=== PATIENT | male | born 1945 | race Caucasian/White ===

== ENCOUNTER 2019-12-17 14:36 | Observation (INO) | payer OTHER, MEDICARE ==
[~2019-12-17] VITALS: Ht 180.3 cm; Wt 127.0 kg
--- NOTE | 2019-12-17 14:36 | NUR ---
PATEINT TO ROOM VIA WHEELCHAIR AND PHYSICIAN AT BEDSIDE FOR EVAL
[2019-12-17 15:05] LABS: HEMATOCRIT 38.9 % (39.0-50.0); IMMATURE GRANULOCYTES 0.3 % (0.0-5.0); MEAN CELL VOLUME 89.6 fL CALC (80.0-100.0); MEAN CORPUSCULAR HGB CONC 33.4 g/dL CAL (32.0-36.0); NEUT# 4.78 thou/uL (1.82-7.42); RED BLOOD COUNT 4.34 mill/uL (4.70-6.10); RED CELL DISTRI WIDTH 15.5 % (11.5-15.5)
[2019-12-17] MEDS ORDERED: CETIRIZINE10 MG PO (15:10)
[2019-12-17] MEDS ORDERED: VENTOLIN HFA IN (15:10)
[2019-12-17] MEDS ORDERED: PLAVIX75 MG PO (15:11)
[2019-12-17] MEDS ORDERED: FAMOTIDINE20 M1 PO (15:11)
[2019-12-17] MEDS ORDERED: D3 HIGH POT1000 UNIT PO (15:11)
[2019-12-17] MEDS ORDERED: GLIPIZIDE5 MG PO (15:12)
[2019-12-17] MEDS ORDERED: GABAPENTIN100 MG PO (15:12)
[2019-12-17] MEDS ORDERED: HYDROCHLOROT25 MG PO (15:13)
[2019-12-17] MEDS ORDERED: INSULIN AS100 UNIT/1 SC (15:14)
[2019-12-17] MEDS ORDERED: SINGULAIR10 MG PO (15:15)
[2019-12-17] MEDS ORDERED: METOPROL TAR25 MG PO (15:15)
[2019-12-17] MEDS ORDERED: ASPIRIN 81 LOW81 MG PO (15:16)
[2019-12-17] MEDS ORDERED: ISOSORB MONO60 M1 PO (15:18)
[2019-12-17 15:29] LABS: ANION GAP 14 (6-22 (CALC)); BUN 15 mg/dL (8-23); BUN/CREATININE RATIO 19 (12-20 (CALC)); CARBON DIOXIDE 29 mmol/l (22-30); CHLORIDE 98 mmol/l (95-108); CREATININE 0.8 mg/dL (0.7-1.3); GFR > 60 ML/MIN (>=60 (CALC)); GFR FOR AFR.AMER. > 60 ML/MIN (>=60 (CALC)); POTASSIUM 3.6 mmol/l (3.5-5.1); SODIUM 138 mmol/l (137-146)
--- NOTE | 2019-12-17 15:45 | NUR ---
PT STABLE ON MONITOR. DENIES ANY CHEST PAIN AT THIS TIME. AT BEDSIDE.
--- NOTE | 2019-12-17 16:45 | NUR ---
PT REMAINS STABLE. DENIES ANY PAIN. BED IN LOW POSITION. CALL LIGHT WITHIN REACH.
--- NOTE | 2019-12-17 17:05 | NUR ---
REPORT CALLED TO NAIMA PACHECO ON [facility].
--- NOTE | 2019-12-17 17:15 | NUR ---
PT ARRIVED TO UNIT VIA WHEELCHAIR WITH ER STAFF; ALERT AND ORIENTED. AMBULATED TO BED WITH STEAGY GAIT; PT REPORTS UNSTEADY GAIT AND USES CANE AND WALKER AT HOME. DENIES ANY CHEST PAIN UPON ARRIVAL; TELE CONFIRMED WITH SHANK CEMENTER HAND SR HR 72. RESPIRATIONS EVEN AND UNLABORED ON ROOM AIR. LUNGS CLEAR; HR REGULAR. YAHAIRA HOSE APPLIED. ORIENTED TO ROOM AND CALL LIGHT SYSTEM. PLAN OF CARE REVIEWED. PT ENCOURAGED TO VERBALIZE CONCERNS. STATES UNDERSTANDING. SAFETY MEASURES IN PLACE. CALL LIGHT WITHIN REACH.
[2019-12-17 17:33] VITALS: BP 112/73
[2019-12-17 19:04] VITALS: BP 115/70
--- NOTE | 2019-12-17 19:25 | NUR ---
PT UPRIGHT IN BE WATCHING BALLGAME ON TV. PT DENIES SOB, CP, N/V OR ANY OTHER DISTRESSES. CALL LIGHT W/IN REACH. DIET SODA PROVIDED AT THIS TIME PER REQUEST. PT ENCOURAGED TO CALL NEEDS ARISE. PT REPORTS HAVING DIZZINESS OFTEN, AGILE TESTER ASKED PT TO CALL PRIOR TO AMBULATING FOR STANDBY ASSISTANCE FOR SAFETY, PT VERBALIZED UNDERSTANDING.
--- NOTE | 2019-12-17 20:04 | NUR ---
PT SLEEPING, NO S/O DISTRESS NOTED. CALL LIGHT AT BEDSIDE. BED IN LOWEST POSITION AND SEIZURE PRECAUTIONS PLACED.
--- NOTE | 2019-12-17 21:04 | NUR ---
PT MEDICATED ORDERS PROVIDE. ASSESSMENT COMPLETED AT THIS TIME. PT DENIES SOB, CP OR ANY OTHER DISTRESS. WILL CONTINUE TO MONITOR.
[2019-12-17 23:41] VITALS: BP 113/72
--- NOTE | 2019-12-18 02:00 | NUR ---
PT SLEEPING, NO S/O DISTRESS NOTED.
[2019-12-18 03:47] VITALS: BP 101/62
[2019-12-18 06:08] LABS: HEMATOCRIT 38.1 % (39.0-50.0); HEMOGLOBIN 12.8 g/dl (14.0-18.0); IMMATURE GRANULOCYTES 0.3 % (0.0-5.0); MEAN CELL VOLUME 89.2 fL CALC (80.0-100.0); MEAN CORPUSCULAR HGB CONC 33.6 g/dL CAL (32.0-36.0); NEUT# 3.44 thou/uL (1.82-7.42); RED BLOOD COUNT 4.27 mill/uL (4.70-6.10); RED CELL DISTRI WIDTH 15.5 % (11.5-15.5)
[2019-12-18 06:33] LABS: ALBUMIN 3.8 g/dL (3.2-5.0); ALKALINE PHOSPHATASE 58 u/l (38-126); ANION GAP 12 (6-22 (CALC)); BILIRUBIN, TOTAL 0.8 mg/dL (0.0-1.4); BUN 17 mg/dL (8-23); BUN/CREATININE RATIO 21 (12-20 (CALC)); CALCULATED LDLCHOLESTEROL 48 mg/dL (62-129 (CALC)); CARBON DIOXIDE 28 mmol/l (22-30); CHLORIDE 101 mmol/l (95-108); CHOLESTEROL HDL RATIO 6.4 (<4.4 (CALC)); CREATININE 0.8 mg/dL (0.7-1.3); GFR > 60 ML/MIN (>=60 (CALC)); GFR FOR AFR.AMER. > 60 ML/MIN (>=60 (CALC)); HDL CHOLESTEROL 20 mg/dL (>=40); MAGNESIUM 1.7 mg/dL (1.6-2.3); SGOT/AST 80 u/l (19-48); SODIUM 137 mmol/l (137-146); TOTAL CHOLESTEROL 129 mg/dl (0-199); TOTAL PROTEIN 6.9 g/dL (6.3-8.2); TOTAL TRIGLYCERIDES 305 mg/dl (30-149); VLDL CHOLESTROL 61 mg/dl (0-38 (CALC))
--- NOTE | 2019-12-18 07:50 | NUR ---
PT RESTING IN BED, ALERT AND ORIETNED. VS OBTAINED AND ASSESSMENT COMPLETED. RESPIRATIONS ARE EVEN AND UNLABORED ON RA. LUNGS SOUND CLEAR. PEDAL PULSES ARE STRONG. PT DENIES ANY PAIN OR DISCOMFORT AT THIS TIME. TELE IN PLACE. CALL CLIFTON WITHIN REACH. WILL CONTINUE TO MONITOR.
[2019-12-18 07:51] VITALS: BP 110/68
[2019-12-18 11:27] VITALS: BP 114/55
--- NOTE | 2019-12-18 11:34 | NUR ---
PT AND SPOUSE PROVIDED WITH DISCHARGE PACKET, PT DENIES HAVING ANY QUESTIONS. IV #18 RAC REMOVED PT TOLERATED WELL.
--- NOTE | 2019-12-18 11:45 | NUR ---
Discharge instructions given. Patient verbalizes understanding of same. Discharged in stable condition via Wheelchair to Home with spouse . All belongings sent with pt.
== END 2019-12-18 11:50 | disposition home or self-care (01) | DRG 313 ==
LOC: ED 14:36 → ED-I 15:13 → ED 15:13 → ED-I 16:08 → ED 16:26 → MS2 16:27
PROVIDERS: Family Medicine; Nurse Practitioner; ADMIT Internal Medicine; ATTEND Internal Medicine
DX: R07.9 Chest pain, unspecified (principal); I10 Essential (primary) hypertension; E11.9 Type 2 diabetes mellitus without complications; I25.10 Atherosclerotic heart disease of native coronary artery without angina pectoris; I25.2 Old myocardial infarction; Z95.5 Presence of coronary angioplasty implant and graft; Z79.4 Long term (current) use of insulin; Z20.828 Contact with and (suspected) exposure to other viral communicable diseases
CPT/HCPCS: J1650

== ENCOUNTER 2020-03-18 12:14 | Inpatient (IN) | payer OTHER, MEDICARE ==
[~2020-03-18] VITALS: Ht 180.3 cm; Wt 122.2 kg
[~2020-03-18 12:14] MED LIST: ASPIRIN 81 LOW81 MG PO; CETIRIZINE10 MG PO; D3 HIGH POT1000 UNIT PO; FAMOTIDINE20 M1 PO; GABAPENTIN100 MG PO; GLIPIZIDE5 MG PO; HYDROCHLOROT25 MG PO; INSULIN AS100 UNIT/1 SC; ISOSORB MONO60 M1 PO; METOPROL TAR25 MG PO; PLAVIX75 MG PO; SINGULAIR10 MG PO; VENTOLIN HFA IN
--- NOTE | 2020-03-18 12:15 | NUR ---
PATIENT TO ROOM VIA EMS AND PHYSICIAN AT BEDSIDE FOR EVAL
[2020-03-18 12:41] LABS: HEMATOCRIT 37.6 % (39.0-50.0); HEMOGLOBIN 12.7 g/dl (14.0-18.0); IMMATURE GRANULOCYTES 0.2 % (0.0-5.0); MEAN CELL VOLUME 87.6 fL CALC (80.0-100.0); MEAN CORPUSCULAR HGB 29.6 pG CALC (26.0-32.0); MEAN CORPUSCULAR HGB CONC 33.8 g/dL CAL (32.0-36.0); NEUT# 3.96 thou/uL (1.82-7.42); RED BLOOD COUNT 4.29 mill/uL (4.70-6.10); RED CELL DISTRI WIDTH 14.6 % (11.5-15.5)
--- NOTE | 2020-03-18 12:43 | NUR ---
PT STATES HAVING MANY FALLING EPISODES WHERE HE IS DIZZY AND FALLS. PT ARRIVES WITH C-COLLAR THAT WAS APPLIED BY EMS BECAUSE OF CERVICAL TENDERNESS. PT DENIES ANY NUMBNESS AND TINGLING IN EXTREMETIES. PMS+ IN ALL EXTREMETIES. NIH 0. WHEN I HAD PT LIFT HIS RIGHT LEG FOR NIH ASSESS, PT STATES THAT HE COULD NOT LIFT IT DUE TO RIGHT HIP PAIN. AOX4. PERRLA. WILL CONTINUE TO MONITOR.
[2020-03-18 13:06] LABS: ALBUMIN 4.2 g/dL (3.2-5.0); ALKALINE PHOSPHATASE 59 u/l (38-126); ANION GAP 15 (6-22 (CALC)); BUN 18 mg/dL (8-23); BUN/CREATININE RATIO 18 (12-20 (CALC)); CARBON DIOXIDE 28 mmol/l (22-30); CHLORIDE 95 mmol/l (95-108); GFR > 60 ML/MIN (>=60 (CALC)); GFR FOR AFR.AMER. > 60 ML/MIN (>=60 (CALC)); POTASSIUM 3.3 mmol/l (3.5-5.1); SGOT/AST 47 u/l (19-48); SODIUM 135 mmol/l (137-146); TOTAL PROTEIN 7.9 g/dL (6.3-8.2)
--- NOTE | 2020-03-18 13:30 | NUR ---
PT RESTING ON STRETCHER WITH AT BEDSIDE. PT IS COMPLAINING ABOUT C/COLLAR AND EDU PROVIDED. DENIES ANY NEEDS EXCEPT FOR WANTING WATER AND THAT WAS DENIED AT THIS TIME UNTIL RESULTS ARRIVE
--- NOTE | 2020-03-18 14:30 | NUR ---
PT HAS ANTIBIOTICS INFUSING INTO PATENT IV AND PT CONTINUES TO HAVE NO ADVERSE EFFECTS. DENIES ANY NEEDS AND PENDING ADMISSION IS DISCUSSED
--- NOTE | 2020-03-18 16:01 | NUR ---
GAVE REPORT TO ADARSH
--- NOTE | 2020-03-18 16:04 | NUR ---
REPORT REC FROM JANETH MCNAMARA
--- NOTE | 2020-03-18 16:20 | NUR ---
PT TRANSPORTED TO [facility] SURG STABLE AND IN NO DISTRESS. CARE ASSUMED TO ADARSH Admission Note Report Given to: ADARSH Transported by: Wheelchair X Stretcher Transported with: X Nurse Transporter X Patent IV X O2 X Dean For Student Affairs Location: ICU X MS2
--- NOTE | 2020-03-18 16:30 | NUR ---
PT ARRIVED VIA [facility] ACCOMPANIED BY JANETH MCNAMARA. A&O X3. NO DISTRESS NOTED. PT REPORTS DIZZINESS THAT HAS BEEN GOING ON FOR SEVERAL WEEKS. ADMITS TO FREQUENT FALLS. NO BURISING NOTED. INCREASING WEAKNESS. PT USES CANE, BUT STATES HE HAS BEEN HAVING TO USE THE WALKER MORE FREQUENTLY AT HOME. C/O RT RIB PAIN. STATES THAT HE HAS BEEN "LOOSING MEMORY". REPORTS DIZZINESS WHEN TRYING TO PLACE IN SEMI FOWLERS POSITION, PT REPORTS "DIZZINESS". ASSESSMENT COMPLETED. DISCUSSED POC, REINFORCEMENT NEEDED. CALL LIGHT LEFT WITHIN REACH.
[2020-03-18 17:02] VITALS: BP 114/56
--- NOTE | 2020-03-18 18:37 | NUR ---
TELE NEUROLOGY CONSULT WITH DR GUERRERO IN PROGRESS.
[2020-03-18 19:11] VITALS: BP 120/78
--- NOTE | 2020-03-18 20:34 | NUR ---
PT MEDICATED ORDERS PROVIDE AND ASSESSMENT COMPLETED AT THIS TIME. POULTRY PINNER WAS JUST IN ATTEMPTING TO ASSIST HIM TO BSC, BUT HE WAS VERY UNSTABLE ON HIS FEET AND EXPERIENCED DIZZINESS UPON ATTEMPTING TO AMBULATE. PT PLACED ON BEDPAN, BUT WAS UNABLE TO HAVE BM AT THIS TIME. DISCUSSED THAT HE WILL TRY AGAIN LATER, I REINFORCED HIS NEED TO CALL FOR ASSISTANCE DUE TO FREQUENT FALLS AND DIZZINESS. PT ALSO REPORTS MILD NAUSEA, MEDICATED WITH ZOFRAN AT THIS TIME. DENIES ANY OTHER NEEDS. I ASSISTED HIM REPOSITIONING IN BED FOR COMFORT AND PROVIDED APPLE JUICE AND CRACKERS FOR SNACK REQUESTED. CALL LIGHT LEFT AT SIDE AND MONITOR IN PLACE FOR SAFETY PRECAUTION.
[2020-03-19 00:04] VITALS: BP 114/57
--- NOTE | 2020-03-19 00:05 | NUR ---
PT SLEEPING, AWOKE TO OUR ENTERING THE ROOM. TELEMETRY LEADS PLACED BACK PROPER PLACING FOR READINGS AND V/S ASSESSED AT THIS TIME. MONITOR ON PT FOR SAFETY.
--- NOTE | 2020-03-19 02:30 | NUR ---
pt appears to be sleeping at this time. no s/o distress noted.
[2020-03-19 04:00] VITALS: BP 102/67
--- NOTE | 2020-03-19 05:33 | NUR ---
PT SLEEPING, AWOKE TO MY ENTERING ROOM, DENIED ANY NEEDS AT THIS TIME. OXYGEN TITRATED DOWN TO 2L AT THIS TIME, WILL CONTINUE TO MONITOR FOR O2 SAT LEVELS. WAS @98% ON 3L.
[2020-03-19 06:21] LABS: HEMOGLOBIN 12.4 g/dl (14.0-18.0); IMMATURE GRANULOCYTES 0.4 % (0.0-5.0); MEAN CELL VOLUME 89.4 fL CALC (80.0-100.0); MEAN CORPUSCULAR HGB CONC 33.5 g/dL CAL (32.0-36.0); NEUT# 3.82 thou/uL (1.82-7.42); RED BLOOD COUNT 4.14 mill/uL (4.70-6.10); RED CELL DISTRI WIDTH 14.6 % (11.5-15.5)
--- NOTE | 2020-03-19 06:50 | NUR ---
REPORT REC FROM SARAH MCNAMARA
[2020-03-19 06:51] LABS: ALBUMIN 3.7 g/dL (3.2-5.0); ALKALINE PHOSPHATASE 55 u/l (38-126); BILIRUBIN, TOTAL 0.8 mg/dL (0.0-1.4); BUN 17 mg/dL (8-23); BUN/CREATININE RATIO 20 (12-20 (CALC)); C-REACTIVE PROTEIN 5.7 mg/dL (0-0.9); CARBON DIOXIDE 29 mmol/l (22-30); CHLORIDE 102 mmol/l (95-108); CREATININE 0.9 mg/dL (0.7-1.3); GFR > 60 ML/MIN (>=60 (CALC)); GFR FOR AFR.AMER. > 60 ML/MIN (>=60 (CALC)); SGOT/AST 35 u/l (19-48)
[2020-03-19 07:20] LABS: ANION GAP 15 (6-22 (CALC)); POTASSIUM 4.3 mmol/l (3.5-5.1); SODIUM 142 mmol/l (137-146)
[2020-03-19 08:32] VITALS: BP 175/69
--- NOTE | 2020-03-19 08:32 | NUR ---
UPON ENTERING ROOM PT C/O OF CP, DULL IN DESCRIPTION THAT IS NON RADIATING 08/14 . PT STATES HE TAKES SUBLINGUAL NITRO AT HOME. A&O X3. C/O OF DIZZINESS WELL THAT HAS NOT SUBSIDED, STATES IT GETS WORSE WHEN HE TURNS OR MOVES. BREATH SOUNDS CLEAR UPON AUSCULTATION. O2 VIA NC @2L IN PLACE, O2 TITRATED TO 3L VIA NC, O2 SUSTAINING 93-95%. ASSESSMENT COMPLETED. DISCUSSED POC. CALL LIGHT LEFT WITHIN REACH.
--- NOTE | 2020-03-19 08:50 | NUR ---
DR CHIU AND Uriel ESCOTO APRN AT BEDSIDE DISCUSSING POC
--- NOTE | 2020-03-19 09:02 | NUR ---
RT AT BEDSIDE OBTAINING EKG
--- NOTE | 2020-03-19 09:15 | NUR ---
LAB AT BEDSIDE OBTAINING STAT TROPONIN
--- NOTE | 2020-03-19 09:17 | NUR ---
FIRST DOSE OF SUBLINGUAL NITRO ADMINISTRED. PT TO BE REASSESSED
--- NOTE | 2020-03-19 09:36 | NUR ---
SECOND DOSE OF SUBLINGUAL NITRO ADMINISTERED. CALL LIGHT LEFT WITHIN REACH. CONTINUE TO MONITOR.
--- NOTE | 2020-03-19 09:42 | NUR ---
SPUTUM SAMPLE OBTAINED, LABELED AND SENT TO LAB. SPUTUM CLEAR WITH RED TINGE COLOR.
--- NOTE | 2020-03-19 09:54 | NUR ---
UPON REASSESSMENT PT STATES PAIN IS "MUCH BETTER" RATING IT 1/10. WILL CONTINUE TO MONITOR. MERCHANDISING CONSULTANT IN PLACE.
[2020-03-19 11:42] VITALS: BP 138/63
--- NOTE | 2020-03-19 12:36 | NUR ---
PT SITTING IN BED WATCHING TV. NO DISTRESS NOTED. PT DENIES ANY CP AT THIS TIME. CALL LIGHT IN REACH.
[2020-03-19] MEDS ORDERED: HYDROCHLOROT25 MG PO (13:24)
[2020-03-19] MEDS ORDERED: CELEXA40 M1 PO (13:28)
[2020-03-19] MEDS ORDERED: MONTELUKAST SOD10 MG PO (13:29)
[2020-03-19] MEDS ORDERED: [UNRECOGNIZED DRUG - CODE] (13:32)
[2020-03-19] MEDS ORDERED: PANTOPRAZOLE SO40 M1 PO (13:33)
[2020-03-19] MEDS ORDERED: GLIPIZIDE5 M2 PO (13:37)
[2020-03-19] MEDS ORDERED: METOPROL TAR25 M1 PO (13:37)
[2020-03-19] MEDS ORDERED: ISOSORB MONO60 M1 PO (13:38)
[2020-03-19] MEDS ORDERED: ROSUVASTATIN CA40 MG (13:43)
[2020-03-19] MEDS ORDERED: ALL DAY ALLG10 MG PO (13:44)
[2020-03-19] MEDS ORDERED: FERROUS SULF325 M2 PO (13:46)
[2020-03-19] MEDS ORDERED: PROAIR HFA IN (13:47)
[2020-03-19] MEDS ORDERED: LANTUS100 UNIT/M SC (13:48)
[2020-03-19] MEDS ORDERED: NOVOLOG100 UNIT/M SC (13:51)
[2020-03-19] MEDS ORDERED: CLOPIDOGREL75 MG PO (14:00)
[2020-03-19] MEDS ORDERED: ASPIRIN ADULT L81 M2 (14:01)
--- NOTE | 2020-03-19 15:35 | NUR ---
PT A X2 ASSIST WHEN GETTING OUT OF BED DUE TO "SEVERE DIZZINESS". PT ASSISTED TO THE CHAIR. INSTRUCTED PT TO CALL WHEN WANTING TO GET OUT OF BED OR WHEN DIZZINESS WORSENS. PT VERBALIZED UNDERSTANDING. PT DENIES ANY CP AT THIS TIME. CALL LIGHT LEFT WITHIN REACH.
--- NOTE | 2020-03-19 16:03 | NUR ---
SPEECH THERAPY AT BEDSIDE
[2020-03-19 16:10] VITALS: BP 131/80; BP 134/67
--- NOTE | 2020-03-19 17:37 | NUR ---
PT LAYING IN BED WATCHING TV. DENIES ANY CP AT THIS TIME. CALL LIGHT IN REACH.
[2020-03-19 19:00] VITALS: BP 132/67
--- NOTE | 2020-03-19 20:59 | NUR ---
PT IN BED WITH EYES CLOSED. NO S/S OF DISTRESS/DISCOMFORT. PT NOTED WIT PRODUCTIVE COUGH WITH THIC SPUTUM NOTED. RESPIRATIONS ARE EVEN AND NON LABORED. ABLE TO MAKE NEEDS KNOWN. ASSIST X 1 WITH TRANSFERS. CONTINENT OF B/B AND USES URINAL. CALL LIGHT WITHIN REACH. WILL CONTINUE TO OBSERVE
[2020-03-20] VITALS (7 sets, daily range): BP systolic 116–141; BP diastolic 47–73
--- NOTE | 2020-03-20 00:45 | NUR ---
PT IN BED WITH EYES CLOSED. NO S/S OF DISTRESS. BLOOD SUGAR ELEVATED 423 AT BEDTIME. MD WAS NOTIFIED AND NEW ORDER TO RECHECK ACUCHECK AFTER INSULIN GIVEN AND FOLLOW ORDERS FOR ELEVATED BOOD SUGARS. BLOOD GLUCOSE LAB COMPLETED. SSC GIVEN ORDERED. CALL LIGHT WITHIN REACH AND WILL CONTINUE TO OBSERVE
--- NOTE | 2020-03-20 04:28 | NUR ---
PT IN BED WITH EYES CLOSED AND ABLE TO MAKE NEEDS KNOWN. RESPIRATION IS EVEN AND NON LABORED. DENIES PAIN OR DISCOMFORT. CONTINENT OF B/B AND USES URINAL WITH NO COMPLICATIONS NOTED. CALL LIGHT WITHIN REACH AND WILL CONTINUE TO OBSERVE.
[2020-03-20 05:58] LABS: HEMATOCRIT 37.6 % (39.0-50.0); HEMOGLOBIN 12.5 g/dl (14.0-18.0); IMMATURE GRANULOCYTES 0.4 % (0.0-5.0); MEAN CELL VOLUME 89.7 fL CALC (80.0-100.0); MEAN CORPUSCULAR HGB 29.8 pG CALC (26.0-32.0); MEAN CORPUSCULAR HGB CONC 33.2 g/dL CAL (32.0-36.0); NEUT# 6.18 thou/uL (1.82-7.42); RED BLOOD COUNT 4.19 mill/uL (4.70-6.10); RED CELL DISTRI WIDTH 14.6 % (11.5-15.5)
[2020-03-20 06:23] LABS: ALBUMIN 3.4 g/dL (3.2-5.0); ALKALINE PHOSPHATASE 54 u/l (38-126); ANION GAP 13 (6-22 (CALC)); BILIRUBIN, TOTAL 0.6 mg/dL (0.0-1.4); BUN 22 mg/dL (8-23); BUN/CREATININE RATIO 28 (12-20 (CALC)); CARBON DIOXIDE 28 mmol/l (22-30); CHLORIDE 103 mmol/l (95-108); CREATININE 0.8 mg/dL (0.7-1.3); GFR > 60 ML/MIN (>=60 (CALC)); GFR FOR AFR.AMER. > 60 ML/MIN (>=60 (CALC)); POTASSIUM 4.2 mmol/l (3.5-5.1); SGOT/AST 29 u/l (19-48); SODIUM 140 mmol/l (137-146); TOTAL PROTEIN 6.6 g/dL (6.3-8.2)
--- NOTE | 2020-03-20 08:24 | NUR ---
PT SEEN OOB IN CHAIR, ALERT AND ORIENTED X 3. LUNGS CLEAR, DIMINISHED BASES, 6 LPM HFNC. ABDOMEN SOFT, DISTENDED, PT STATES NO BM X 1 WEEK BUT THAT IS NORMAL FOR HIM, HX COLITIS. NO DISTRESS NOTED, NO COMPLAINT OF SHORTNESS OF BREATH.
--- NOTE | 2020-03-20 14:39 | NUR ---
PT WAS IN CHAIR FOR SEVERAL HOURS TODAY, ASSISTED BACK INTO BED. PT IS AT MRI AT THIS TIME. OXYGEN DEMAND REMAINS AT 6 LPM PT REMAINS IN LOW 90s WITH THAT AMOUNT.
--- NOTE | 2020-03-20 16:15 | NUR ---
ATTEMPTED P.T. PT WAS IN THE IMAGING LAB.
--- NOTE | 2020-03-20 17:15 | NUR ---
PT TO MRI AND BACK, WAS ABLE TO HAVE MOST BUT NOT ALL OF WHAT WAS ORDERED. PT SEEN WEAK WHEN STANDING UP, BUT BEARS HIS WEIGHT WHEN HE REACHES FULL HEIGHT.
--- NOTE | 2020-03-20 19:50 | NUR ---
rECEIVED REPORT FOR THIS PT AND IN BED WITH EYES OPEN. ABLE TO MAKE NEEDS KNOWN. RESPIRATION EVEN AND NON LABORED. NO ANXIETY NOTED. CONTINENT OF B/B AND USES URINAL WITH NO COMPLICATIONS NOTED. WILL CONTINUE TO OBSERVE
[2020-03-21] VITALS (9 sets, daily range): BP systolic 104–155; BP diastolic 49–84
[2020-03-21 05:23] LABS: HEMATOCRIT 33.5 % (39.0-50.0); HEMOGLOBIN 10.9 g/dl (14.0-18.0); IMMATURE GRANULOCYTES 0.5 % (0.0-5.0); MEAN CELL VOLUME 90.5 fL CALC (80.0-100.0); MEAN CORPUSCULAR HGB 29.5 pG CALC (26.0-32.0); MEAN CORPUSCULAR HGB CONC 32.5 g/dL CAL (32.0-36.0); NEUT# 4.58 thou/uL (1.82-7.42); RED BLOOD COUNT 3.7 mill/uL (4.70-6.10); RED CELL DISTRI WIDTH 14.8 % (11.5-15.5)
--- NOTE | 2020-03-21 05:50 | NUR ---
PT IN BED WITH EYES CLOSED. NO S.S OF DISTRESS NOTED. EASILY AROUSED. VITALS ARE STABLE. CONTINUING IN TELEMETRY. CPAP IN PLACE AND RESTED WITH NO COMPLICATIONS. CONTINENT OF B/B AND USES URINAL AT BEDSIDE. CALL LIGHT WITHIN REACH. WILL CONTINUE TO OBSERVE
[2020-03-21 06:33] LABS: ALKALINE PHOSPHATASE 50 u/l (38-126); ANION GAP 10 (6-22 (CALC)); BILIRUBIN, TOTAL 0.7 mg/dL (0.0-1.4); BUN 25 mg/dL (8-23); BUN/CREATININE RATIO 33 (12-20 (CALC)); C-REACTIVE PROTEIN 1.4 mg/dL (0-0.9); CARBON DIOXIDE 26 mmol/l (22-30); CHLORIDE 106 mmol/l (95-108); CREATININE 0.7 mg/dL (0.7-1.3); GFR > 60 ML/MIN (>=60 (CALC)); GFR FOR AFR.AMER. > 60 ML/MIN (>=60 (CALC)); POTASSIUM 4.3 mmol/l (3.5-5.1); SGOT/AST 23 u/l (19-48); SODIUM 138 mmol/l (137-146); TOTAL PROTEIN 5.9 g/dL (6.3-8.2)
--- NOTE | 2020-03-21 07:10 | NUR ---
PATIENT RESTING IN BED AT THIS TIME PATIENT ON HI-FLOW 02 AT 10L AT THIS TIME AND IS HAVING LABORED RESPIRTAITONS. PATIENT DENIES ANY PAIN AT THIS TIME AND IV STIE IS WITHOUT S/S OF IV SITE INFECTION AND IS FLOWING WITHOUT RESISTANCE. CALL LIGHT IS WITHIN REACH AND SIDERAILS ARE UP X 2. PATIENT STATED HE SLEPT WELL LAST NIGHT DUE TO HAVING HIS C-PAP AT BEDSIDE.
--- NOTE | 2020-03-21 09:30 | NUR ---
REPORT CALLED TO ICU NURSE ANN MCNAMARA. DR. CHIU IN TO SEE PATIENT AND WANTS PATIENT TRANSFERED TO ICU TO MONITOR HIS O2 AT THIS TIME.
--- NOTE | 2020-03-21 11:38 | NUR ---
PT note Patient was seen for DBE including incentive spiromoter and 4 sec breath holds . He is really struggling when I enter the room and I attempted to get him to perform a deeper and slower breath. He was able to stand but became dyspneic and was transferred BTB. He recovered within 2 min. He is limited by dyspnea today and has an Am Pac of 10 indcicating he would do well with SNF to fully recover once he is stabilized
--- NOTE | 2020-03-21 11:44 | NUR ---
PT ARRIVES FROM [place] [id number] VIA WHEELCHAIR, ACCOMPANIED BY CLIFTON. PT IS AWAKE, ALERT, ORIENTED X 3. LUNGS ARE CLEAR, USING 10 LPM NC TO MAINTAIN SATS IN THE 88-92 RANGE. PT DOES BECOME SHORT OF BREATH UPON EXERTION.
--- NOTE | 2020-03-21 14:45 | NUR ---
Pt alert and oriented x4 upon entry. He was lying down with his nasal cannula removed and his call guerrier out of reach. Nile was seen today d/t his change in status from initial evaluation and transition to the icu. Nile is currently receiving 10L hiflow O2. His saturation remained stable during his time with the CHARGE OPERATOR between 90-95%. Nile was administered regular dry solids 4x to assess his current respiratory status for meals. Although he presented with increased mastication time, he did not have any s/s of aspiration of solids and appropriate bolus clearance w/o a liquid wash. No instances of desaturation during regular solid PO trials. Nile is also still tolerating his current recommended thin liquids via straw during consecutive sips and single cup sips. Clear vocal quality and no overt s/s of aspiration following thin liquid trials. CHARGE OPERATOR recommends to continue current diet for regular solids and thin liquids.
--- NOTE | 2020-03-21 15:27 | NUR ---
PT HAS BEEN RESTING IN THE BED THIS AFTERNOON, SATS NOW IN THE UPPER 90s. OXYGEN TURNED DOWN TO 8 LPM FROM 10 LPM NC, NOW 96%. PT IN NO DISTRESS, BECOMES LOPEZ.
--- NOTE | 2020-03-21 16:20 | NUR ---
PT WEANED DOWN TO 8 LPM FROM 10 LPM NC, SEEN TO HAVE 96% SAT NOW. PT IN NO DISTRESS, ALTHOUGH HE DOES BECOME SHORT OF BREATH WITH EXERTION.
--- NOTE | 2020-03-21 18:24 | NUR ---
PT CONTINUES AT 93-96% WHILE ON 8 LPM NC.
--- NOTE | 2020-03-21 20:00 | NUR ---
awake. denies resp diff. o2 cont 8 l/m nc. manager of tires sales shows sinus rhythm hr 85. #20 rac saline lock. po fluids taken well. voids per urinal. instructed pt about prone position. pt verbalized understanding. assisted to bedside chair. sob with exert. fall precautions cont.
--- NOTE | 2020-03-21 20:10 | NUR ---
pulse ox 87%. o2 increased to 10 l/m. after few minutes pulse ox 93%.
--- NOTE | 2020-03-21 22:00 | NUR ---
assisted back to bed. fred well. rt notified of need for assist with home cpap.
[2020-03-22] VITALS (14 sets, daily range): BP systolic 93–145; BP diastolic 53–87
--- NOTE | 2020-03-22 00:01 | NUR ---
eyes closed. nad. home cpap cont. rn cardiac rehab shows sinus cristina hr 54.
--- NOTE | 2020-03-22 02:00 | NUR ---
resting quietly. nad. lying on lt side. night monitor shows sinus cristina pacs pvcs hr 56.
--- NOTE | 2020-03-22 04:00 | NUR ---
eyes closed. nad. site monitor shows sinus cristina pacs pvcs hr 48.
--- NOTE | 2020-03-22 05:56 | NUR ---
eyes closed. nad. home cpap cont. radiation monitor shows sinus rhythm pacs pvcs hr 60.
--- NOTE | 2020-03-22 07:06 | NUR ---
PT REPORT RECEIVED, PT ALERT/ORIENTED X3, VITAL SIGNS STABLE. LAYING ON BACK IN BED WATCHING TV.
--- NOTE | 2020-03-22 08:19 | NUR ---
sunctioned pt with thick secretions. pts pupils are large but reactive. pt will wake up but does not respond to questions. pulse sat applied to great toe due to pt pulling off leads.
--- NOTE | 2020-03-22 09:25 | NUR ---
PT LAYING ON BED WATCHING TV, DENIES ANY COMPLAINTS AT THIS TIME
--- NOTE | 2020-03-22 09:51 | NUR ---
PT REMAINS SAME, VITAL SIGNS STABLE, NO COMPLAINTS AT THIS TIME
--- NOTE | 2020-03-22 11:43 | NUR ---
PT SITTING UP IN CHAIR, COMPLAINT OF ABRASION TO RIGHT KNEE, CLEANSED AREA AND APPLIED DRESSING AND ACEWRAP TO KNEE
--- NOTE | 2020-03-22 12:47 | NUR ---
PT REMAINS SITTING UP IN RECLINER AT THIS TIME, VITAL SIGNS STABLE, EATING FINE, WATCHING TV AT THIS TIME, NO COMPLAINTS. HIGH FLOW REMAINS AT 10 WITH SATS 89-92
--- NOTE | 2020-03-22 15:27 | NUR ---
PT PLACED BACK IN BED AFTER SITTING UP IN RECLINER FOR MOST OF THE DAY. PT DENIES ANY COMPLAINTS AT THIS TIME
--- NOTE | 2020-03-22 17:08 | NUR ---
PT REMAINS ALERT/ORIENTED X3, TALKING ON PHONE TO , VITAL SIGNS STABLE, SATS 89-90, DENIES ANY SOB
--- NOTE | 2020-03-22 18:30 | NUR ---
PT SITTING UP IN BED WATCHING TV, STATES JUST TALKED TO , WHO IS NOT FEELING WELL AT HOME, IV FLUIDS INFUSING, PT ATE MEAL WELL, ALERT/ORIENTED X3. VITAL SIGNS STABLE, PT REMAINS ON HIGH FLOW AT 10
--- NOTE | 2020-03-22 19:00 | NUR ---
awake. watching tv. denies increased sob. o2 cont 10 l/m high flow. compliance monitor shows sinus rhythm pacs pvcs hr 84. #20 rac saline lock. po fluids taken well. voids per urinal. fall & air/contact precautions cont.
--- NOTE | 2020-03-22 20:40 | NUR ---
pulse ox 85%. requested rt to check with his machine.
--- NOTE | 2020-03-22 21:56 | NUR ---
PT DESATING TO 85% ON 1OL CANNULA. PLACED ON VAPOTHERM 35L/100% 34C. PT TOLERATING WELL WITH SPO2 INCREASING TO 96%
[2020-03-23] VITALS (14 sets, daily range): BP systolic 95–153; BP diastolic 49–69
--- NOTE | 2020-03-23 00:01 | NUR ---
o2 cont per vapotherm. nad. monitoring coordinator shows sinus rhythm pacs pvcs hr 60
--- NOTE | 2020-03-23 02:00 | NUR ---
resting quietly. no resp diff. o2 cont per vapotherm.
--- NOTE | 2020-03-23 04:00 | NUR ---
eyes closed. no distress. cardiac/vascular sonographer shows sinus rhythm hr 66. vapotherm conts.
[2020-03-23 04:49] LABS: HEMATOCRIT 33.8 % (39.0-50.0); HEMOGLOBIN 11.4 g/dl (14.0-18.0); IMMATURE GRANULOCYTES 1.6 % (0.0-5.0); MEAN CELL VOLUME 87.8 fL CALC (80.0-100.0); MEAN CORPUSCULAR HGB 29.6 pG CALC (26.0-32.0); MEAN CORPUSCULAR HGB CONC 33.7 g/dL CAL (32.0-36.0); NEUT# 5.3 thou/uL (1.82-7.42); RED BLOOD COUNT 3.85 mill/uL (4.70-6.10); RED CELL DISTRI WIDTH 14.4 % (11.5-15.5)
[2020-03-23 05:15] LABS: ALBUMIN 3.2 g/dL (3.2-5.0); ALKALINE PHOSPHATASE 54 u/l (38-126); ANION GAP 12 (6-22 (CALC)); BILIRUBIN, TOTAL 0.7 mg/dL (0.0-1.4); BUN 25 mg/dL (8-23); BUN/CREATININE RATIO 28 (12-20 (CALC)); C-REACTIVE PROTEIN 0.8 mg/dL (0-0.9); CARBON DIOXIDE 27 mmol/l (22-30); CHLORIDE 100 mmol/l (95-108); CREATININE 0.9 mg/dL (0.7-1.3); GFR > 60 ML/MIN (>=60 (CALC)); GFR FOR AFR.AMER. > 60 ML/MIN (>=60 (CALC)); POTASSIUM 4.3 mmol/l (3.5-5.1); SGOT/AST 31 u/l (19-48); SODIUM 135 mmol/l (137-146); TOTAL PROTEIN 6.3 g/dL (6.3-8.2)
--- NOTE | 2020-03-23 06:00 | NUR ---
routine iv change per gautam li.
--- NOTE | 2020-03-23 07:24 | NUR ---
PT REPORT RECEIVED, PT RESTING QUIETLY ON STRETCHER, VAPOTHERM TURNED DOWN TO 95% PER RESP TECH. NO COMPLAINTS AT THIS TIME, PT WATCHING TV AND STATES PATIENTLY WAITING ON BREAKFAST
--- NOTE | 2020-03-23 12:06 | NUR ---
PT SITTING UP IN RECLINER, TALKING ON PHONE TO FAMILY, DENIES ANY SOB, DENIES ANY PAIN OR COMPLAINTS. OXYGEN REMAINS ON VAPOTHERM
--- NOTE | 2020-03-23 15:16 | NUR ---
PT SITTING UP IN BED TALKING ON PHONE TO , LAUGHING AND SMILING, DENIES ANY COMPLAINTS AT THIS TIME
--- NOTE | 2020-03-23 17:51 | NUR ---
PT SITTING UP IN RECLINER WATCHING TV AND EATING. REMAINS ON VAPOTHERM , SET AT 95% AND SAT ARE IN LOW TO MID 80'S. PT STATES FEELS A LITTLE BETTER.
--- NOTE | 2020-03-23 19:40 | NUR ---
sitting in bedside chair watching tv. denies resp diff. o2 cont 35 l/m 95% per vapotherm. athletic monitor shows sinus rhythm pacs pvcs hr 72. #20 lt wrist saline lock. po fluids taken well. voids per urinal. assisted into bed. fall & air/contact precautions cont.
--- NOTE | 2020-03-23 22:00 | NUR ---
eyes closed. nad. vapotherm cont.
[2020-03-24] VITALS (14 sets, daily range): BP systolic 84–139; BP diastolic 44–80
--- NOTE | 2020-03-24 00:01 | NUR ---
eyes closed. no resp diff. linux unix administrator shows sinus cristina pacs pvcs hr 52.
--- NOTE | 2020-03-24 02:00 | NUR ---
resting quietly. resps even & unlabored. vapotherm cont. registered nurse cardiac telemetry shows sinus cristina pacs pvcs hr 48.
--- NOTE | 2020-03-24 04:00 | NUR ---
eyes closed. no distress. salesperson recreational vehicles shows sinus cristina hr 52.
--- NOTE | 2020-03-24 06:01 | NUR ---
no resp distress this shift. vapotherm conts.
--- NOTE | 2020-03-24 07:28 | NUR ---
REPORT RECEIVED FROM RITU PENNINGTON. PT RESTING ON LEFT SIDE WITH EYES CLOSED; AWAKENS TO VERBAL STIMULI; ALERT AND ORIENTED. C/O MILD LEFT SIDE PAIN THAT IS CHRONIC X 1 YEAR. RESPIRATIONS EVEN AND UNLABORED ON VAPOTHERM 35L 95% FIO2; PT DENIES SOB; COUGHS WHEN TAKING INITAL DEEP BREATH, BUT OTHERWISE PT DENIES HAVING A COUGH. ACCU CHECK 232 AND 4 UNITS OF HUMULOG GIVEN IN LEFT LOWER ABDOMEN; VSS. PLAN OF CARE REVIEWED. PT ENCOURAGED TO VERBALIZE CONCERNS. STATES UNDERSTANDING. SAFETY MEASURES IN PLACE. CALL LIGHT WITHIN REACH.
--- NOTE | 2020-03-24 08:41 | NUR ---
AM MEDICATIONS PROVIDED INCLUDING TYLENOL FOR LEFT SIDE PAIN AND MILK OF MAG FOR CONSTIPATION. PT REPORTS CHRONIC COLITIS WHERE HE ALTERNATES BETWEEN CONSIPATION AND DIARRHEA; STATES THAT IT IS NORMAL TO GO THIS MANY DAYS WITHOUT A BOWEL MOVEMENT.
--- NOTE | 2020-03-24 09:06 | NUR ---
DR. LOZA AT BEDSIDE FOR EVAL.
--- NOTE | 2020-03-24 11:01 | NUR ---
RT AT BEDSIDE; FOI2 TITRATED DOWN TO 90%.
--- NOTE | 2020-03-24 13:21 | NUR ---
FIO2 DECREASED TO 85%; REMAINS ON 35L; SPO2 98-99%. PT ATE 100% OF LUNCH. FRIENDLY AND TALKATIVE; USING BEDSIDE URINAL TO VOID CLEAR JENN URINE.
--- NOTE | 2020-03-24 14:29 | NUR ---
REMDESIVIR INFUSING WITHOUT DIFFICULTY; IV SITE TO LEFT WRIST APPEARS HEALTHY AND FLUSHES. FIO2 AT 80%.
--- NOTE | 2020-03-24 17:30 | NUR ---
ASSISTED INTO BEDSIDE CHAIR FOR DINNER. VAPTHERM REMAINS AT 35L WITH FIO2 NOW AT 75%; SPO2 94% WHILE SITTING UP IN CHAIR EATING. ROCEPHIN INFUSING AT THIS TIME; IV SITE APPEARS HEALTHY. CALL LIGHT WITHIN REACH.
--- NOTE | 2020-03-24 18:45 | NUR ---
SET UP TO BRUSH TEETH AND LINENS CHANGED.
--- NOTE | 2020-03-24 19:20 | NUR ---
PT IN BED, WATCHING TV. LINENS WERE CHANGED. PT ON VAPOTHERM SA02 95%. CALL CLIFTON IN REACH.
--- NOTE | 2020-03-24 20:00 | NUR ---
PT AAOX3, NO DISTRESS OR COMPLAINS NOTED. PT RELATED BREATHING IMPROVED. CALL CLIFTON IN REACH.
--- NOTE | 2020-03-24 20:37 | NUR ---
DR LOZA INFORMED OF ACCU CHECK 430, ORDERS GIVEN.
--- NOTE | 2020-03-24 22:00 | NUR ---
PT WATCHING TV. NO RESP DISTRESS NOTED. CALL CLIFTON IN REACH.
[2020-03-25] VITALS (13 sets, daily range): BP systolic 102–126; BP diastolic 45–71
--- NOTE | 2020-03-25 | NUR ---
PT WITH EYES CLOSED LYING ON R SIDE. NO RESP DISTRESS NOTED. CALL CLIFTON IN REACH.
--- NOTE | 2020-03-25 02:00 | NUR ---
PT WITH EYES CLOSED. NO RESP DISTRESS NOTED. CALL CLIFTON IN REACH.
--- NOTE | 2020-03-25 04:00 | NUR ---
PT WITH EYES CLOSED, NO RESP DISTRESS NOTED. CALL CLIFTON IN PLACE.
--- NOTE | 2020-03-25 04:52 | NUR ---
LAB AT BEDSIDE
[2020-03-25 05:13] LABS: HEMATOCRIT 37.2 % (39.0-50.0); HEMOGLOBIN 12.3 g/dl (14.0-18.0); IMMATURE GRANULOCYTES 1.5 % (0.0-5.0); MEAN CELL VOLUME 89.6 fL CALC (80.0-100.0); MEAN CORPUSCULAR HGB 29.6 pG CALC (26.0-32.0); MEAN CORPUSCULAR HGB CONC 33.1 g/dL CAL (32.0-36.0); NEUT# 6.89 thou/uL (1.82-7.42); RED BLOOD COUNT 4.15 mill/uL (4.70-6.10); RED CELL DISTRI WIDTH 14.7 % (11.5-15.5)
[2020-03-25 05:36] LABS: ALBUMIN 3.6 g/dL (3.2-5.0); ALKALINE PHOSPHATASE 47 u/l (38-126); ANION GAP 14 (6-22 (CALC)); BILIRUBIN, TOTAL 0.7 mg/dL (0.0-1.4); BUN 33 mg/dL (8-23); BUN/CREATININE RATIO 35 (12-20 (CALC)); C-REACTIVE PROTEIN < 0.5 mg/dL (0-0.9); CARBON DIOXIDE 30 mmol/l (22-30); CHLORIDE 100 mmol/l (95-108); CREATININE 0.9 mg/dL (0.7-1.3); GFR > 60 ML/MIN (>=60 (CALC)); GFR FOR AFR.AMER. > 60 ML/MIN (>=60 (CALC)); POTASSIUM 4.9 mmol/l (3.5-5.1); SGOT/AST 29 u/l (19-48); SODIUM 139 mmol/l (137-146); TOTAL PROTEIN 6.9 g/dL (6.3-8.2)
--- NOTE | 2020-03-25 06:06 | NUR ---
PT WITH EYES CLOSED, NO RESP DISTRESS NOTED. CALL CLIFTON IN REACH.
--- NOTE | 2020-03-25 07:14 | NUR ---
REPORT RECEIVED FROM NAIMA GOODWIN. PT RESTING IN BED ON LEFT SIDE WITH EYES CLOSED AND NO SIGNS OF DISTRESS; AWAKENS TO VERBAL STIMULI. DENIES PAIN. RESPIRATIONS EVEN AND UNLABORED ON VAPOTHERM 35L 75% FIO2 AT 34 DEGREES; SPO2 91-99% DEPENDING ON POSITIONING. POC REVIEWED. PT ENCOURAGED TO VERBALIZE CONCERNS. STATES UNDERSTANDING. SAFETY MEASURES IN PLACE. CALL LIGHT WITHIN REACH.
--- NOTE | 2020-03-25 08:20 | NUR ---
DR. CHIU AT BEDSIDE FOR EVAL.
--- NOTE | 2020-03-25 08:22 | NUR ---
03/24/20 Patient held as he is still on high 02. We will resume in Am and begin DBE as well as increase activity to tolerance
--- NOTE | 2020-03-25 08:46 | NUR ---
ADDITIONAL 20 UNITS OF LEVEMIR GIVEN WITH AM MEDS DUE TO HYPERGLYCEMIA. MILK OF MAG ALSO PROVIDED FOR CONSTIPATION.
--- NOTE | 2020-03-25 08:51 | NUR ---
PHYSICAL THERAPY AT BEDSIDE.
--- NOTE | 2020-03-25 10:19 | NUR ---
Patient is seen for DBE including incentive spirometer and 4 second breath holds. He is also seen for functional movement bed mobilityu and bed to chair transfer which he does with min assist of 1 and vitals stable while on o2 He is improving nicely overall with an Am Pac of 9 indicating the need for usp facility
--- NOTE | 2020-03-25 11:10 | NUR ---
PT TRASFERRED SELF FROM CHAIR TO BED INDEPENDENTLY; SOME ATTACHMENTS DISCONNECTED; PT REMINDED TO USE CALL LIGHT FOR STAFF ASSISTANCE WHEN GETTING UP AND DOWN; STATES UNDERSTANDING. CALL LIGHT WITHIN REACH.
--- NOTE | 2020-03-25 13:17 | NUR ---
RESTING SEMI FOWLERS IN BED WATCHING TV; ALERT. VOIDING CLEAR DARK YELLOW URINE IN URINAL. CONTINUES ON VAPOTHERM AT 35L AND 75% FOI2.
--- NOTE | 2020-03-25 14:12 | NUR ---
UP TO BSC FOR LARGE FORMED BLACK BOWEL MOVEMENT; SOB WITH EXERTION. IV SITE FLUSHED PRIOR TO REMDESIVIR AND SITE IS LEAKING AND INFILTRATED; SITE DC'D AT THIS TIME.
--- NOTE | 2020-03-25 14:42 | NUR ---
NEW IV SITE PLACED TO RIGHT WRIST; REMDESIVIR INFUSING AT THIS TIME; IV SITE APPEARS HEALTY. 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 VAPOTHERM TITRATED DOWN TO 65% FIO2.
--- NOTE | 2020-03-25 17:18 | NUR ---
ROCEPHIN INFUSING NOW. 12 UNITS OF INSULIN GIVEN FOR ACCU CHECK OF 372. TYLENOL ALSO GIVEN FOR BILATERAL SIDE PAIN. NO REQUESTS OR CONCERNS AT THIS TIME. VAPOTHERM AT 35L 65% FIO2. CALL LIGHT WITHIN REACH.
--- NOTE | 2020-03-25 17:52 | NUR ---
UP TO BEDSIDE CHAIR FOR DINNER.
--- NOTE | 2020-03-25 20:00 | NUR ---
PT AWAKE AND ALERT, LYING ON R SIDE. SA02 99% VAPOTHERM ON. NO RESP DISTRESS NOTED. CALL [facility] IN REACH.
--- NOTE | 2020-03-25 20:22 | NUR ---
ACCU CHECK 418, DR LOZA INFORMED.
--- NOTE | 2020-03-25 22:00 | NUR ---
PT WATCHING TV, NO RESP DISTRESS NOTED. CALL [facility] IN REACH.
[2020-03-26] VITALS (12 sets, daily range): BP systolic 104–139; BP diastolic 52–93
--- NOTE | 2020-03-26 | NUR ---
PT WITH EYES CLOSED, RESPONDS TO VERBAL STIMULI. NO RESP DISTRESS NOTED. CALL [facility] IN REACH.
--- NOTE | 2020-03-26 02:00 | NUR ---
PT WATCHING TV, RELATED DIFFICULT TO SLEEP. NO RESP DISTRESS NOTED. CALL CLIFTON IN REACH.
--- NOTE | 2020-03-26 04:00 | NUR ---
PT TURNED TV OFF, ATTEMPTING TO GO BACK TO SLEEP. NO RESP DISTRESS NOTED. CALL CLIFTON IN REACH.
--- NOTE | 2020-03-26 06:00 | NUR ---
RESP AT BEDSIDE, TURNED DOWN VAPOTHERM TO 35L 60%. SA02 99%
[2020-03-26 06:06] LABS: HEMATOCRIT 36.2 % (39.0-50.0); HEMOGLOBIN 12.2 g/dl (14.0-18.0); IMMATURE GRANULOCYTES 1.1 % (0.0-5.0); MEAN CELL VOLUME 88.1 fL CALC (80.0-100.0); MEAN CORPUSCULAR HGB 29.7 pG CALC (26.0-32.0); MEAN CORPUSCULAR HGB CONC 33.7 g/dL CAL (32.0-36.0); NEUT# 6.03 thou/uL (1.82-7.42); RED BLOOD COUNT 4.11 mill/uL (4.70-6.10); RED CELL DISTRI WIDTH 14.7 % (11.5-15.5)
[2020-03-26 06:34] LABS: ANION GAP 11 (6-22 (CALC)); BUN 25 mg/dL (8-23); BUN/CREATININE RATIO 33 (12-20 (CALC)); CARBON DIOXIDE 29 mmol/l (22-30); CHLORIDE 98 mmol/l (95-108); CREATININE 0.8 mg/dL (0.7-1.3); GFR > 60 ML/MIN (>=60 (CALC)); GFR FOR AFR.AMER. > 60 ML/MIN (>=60 (CALC)); MAGNESIUM 2.1 mg/dL (1.6-2.3); SODIUM 134 mmol/l (137-146)
--- NOTE | 2020-03-26 07:15 | NUR ---
REPORT RECEIVED FROM NAIMA GOODWIN. PT RESTING IN BED SUPINE; ALERT AND ORIENTED. C/O VERY MILD PAIN TO HIS SIDES. RESPIRATIONS EVEN AND UNLABORED ON VAPOTHERM AT 35L AND 60% FIO2; SPO2 98%; TITRATED DOWN TO 55%. LUNGS ARE CLEAR. ACCU CHECK 144. POC REVIEWED. PT ENCOURAGED TO VERBALIZE CONCERNS. STATES UNDERSTANDING. SAFETY MEASURES IN PLACE. CALL LIGHT WITHIN REACH.
--- NOTE | 2020-03-26 10:45 | NUR ---
UP TO BSC FOR LARGE BOWEL MOVEMENT. PT BATHED SELF AND BRUSHED TEETH WHILE UP THEN TRASNFERRED INTO BEDSIDE CHAIR WITH STAND BY ASSIST. PT HAS EXERTIONAL SOB; SPO2 AT 90% DURING EXERTION.
--- NOTE | 2020-03-26 11:01 | NUR ---
PHYSICAL THERPAY AT BEDSIDE.
--- NOTE | 2020-03-26 11:18 | NUR ---
VAPOTHERM TITRATED DOWN TO 25L FIO2 55%; SPO2 92-93%.
--- NOTE | 2020-03-26 13:06 | NUR ---
TRANSFERRED BACK INTO BED AND NOW RESTING SEMI FOWLERS. VAPOTHERM REMOVED AND PT PLACED ON 15L OF HUMIDIFIED OXYGEN VIA HIGH FLOW NC; SPO2 AFTER 10 MINUTES IS 96-97%. PT ENCOURAGED TO VERBALIZES ANY INCREASED SOB OR CHANGES IN CONDITION; STATES UNDERSTANDING. RESPIRATIONS ARE EVEN AND UNLABORED 22-28 RESP PER MINUTE.
--- NOTE | 2020-03-26 13:26 | NUR ---
VAPOTHERM STANDBY. ON 15L HFNC. SPO2 96%
--- NOTE | 2020-03-26 16:48 | NUR ---
SPO2 100%; OXYGEN TITRATED DOWN TO 12L HF NC. ACCU CHECK 354. VSS. NSR ON SWEET PICKLE MAKER.
--- NOTE | 2020-03-26 17:56 | NUR ---
SITTING UP FOR DINNER; OXYGEN TITRATED DOWN TO 10L. ZITHROMAX INFUSING.
--- NOTE | 2020-03-26 19:45 | NUR ---
dr schaffer called this contract technical writer. updated on pts condition. no new orders.
--- NOTE | 2020-03-26 20:00 | NUR ---
awake. watching tv. denies resp diff. o2 cont @ 10 l/m high flow cannula. drill punch operator shows sinus rhythm pacs pvcs hr 63. #20 rt wrist saline lock. po fluids taken well. voids per urinal. fall & air/contact precautions cont.
--- NOTE | 2020-03-26 22:00 | NUR ---
eyes closed. no distress. cook ice cream shows sinus cristina pacs pvcs hr 56.
[2020-03-27] VITALS (8 sets, daily range): BP systolic 107–121; BP diastolic 47–68
--- NOTE | 2020-03-27 00:01 | NUR ---
eyes closed. no distress. o2 cont.
--- NOTE | 2020-03-27 02:00 | NUR ---
resting quietly. resps even & unlabored. no apparent distress. o2 cont.
--- NOTE | 2020-03-27 04:30 | NUR ---
lab here. blood drawn.
--- NOTE | 2020-03-27 05:00 | NUR ---
pulse ox has been 98-100% tonight. o2 decreased to 5 l/m over 1 hr. pulse ox has maintained 98%.
--- NOTE | 2020-03-27 06:05 | NUR ---
pulse ox remains 100%.
[2020-03-27 06:10] LABS: HEMATOCRIT 36.9 % (39.0-50.0); HEMOGLOBIN 12.4 g/dl (14.0-18.0); IMMATURE GRANULOCYTES 1.1 % (0.0-5.0); MEAN CELL VOLUME 88.7 fL CALC (80.0-100.0); MEAN CORPUSCULAR HGB 29.8 pG CALC (26.0-32.0); MEAN CORPUSCULAR HGB CONC 33.6 g/dL CAL (32.0-36.0); NEUT# 7.19 thou/uL (1.82-7.42); RED BLOOD COUNT 4.16 mill/uL (4.70-6.10); RED CELL DISTRI WIDTH 14.7 % (11.5-15.5)
--- NOTE | 2020-03-27 06:11 | NUR ---
xray here. pcxr obtained.
[2020-03-27 06:58] LABS: ALBUMIN 3.4 g/dL (3.2-5.0); ALKALINE PHOSPHATASE 46 u/l (38-126); ANION GAP 12 (6-22 (CALC)); BILIRUBIN, TOTAL 0.7 mg/dL (0.0-1.4); BUN 24 mg/dL (8-23); BUN/CREATININE RATIO 31 (12-20 (CALC)); C-REACTIVE PROTEIN < 0.5 mg/dL (0-0.9); CARBON DIOXIDE 27 mmol/l (22-30); CHLORIDE 99 mmol/l (95-108); CREATININE 0.8 mg/dL (0.7-1.3); GFR > 60 ML/MIN (>=60 (CALC)); GFR FOR AFR.AMER. > 60 ML/MIN (>=60 (CALC)); POTASSIUM 4.2 mmol/l (3.5-5.1); SGOT/AST 26 u/l (19-48); SODIUM 134 mmol/l (137-146); TOTAL PROTEIN 6.4 g/dL (6.3-8.2)
--- NOTE | 2020-03-27 07:15 | NUR ---
REPORT RECEIVED FROM RITU PENNINGTON. PT RESTING IN BED SUPINE; ALERT AND OREINTED. DENIES PAIN CURRENTLY. RESPIRATIONS EVEN AND UNLABORED ON OXYGEN 5L VIA HF NC; SPO2 96-98%; TITRATED DOWN TO 4L. LUNGS ARE DIMINISHED. ACCU CHECK 150. POC REVIEWED. PT ENCOURAGED TO VERBALIZE CONCERNS. STATES UNDERSTANDING. SAFETY MEASURES IN PLACE. CALL LIGHT WITHIN REACH.
--- NOTE | 2020-03-27 08:33 | NUR ---
DR. CHIU AND EMILY ERWIN AT BEDSIDE.
--- NOTE | 2020-03-27 09:05 | NUR ---
TELEPHONE REPORT GIVEN TO RITU GERONIMO. PT UPDATED ON NEW ORDER FOR TRANSFER TO [facility] WITHOUT TELEMETRY.
--- NOTE | 2020-03-27 09:20 | NUR ---
PT ARRIVED FROM ICU VIA WC WITH STAFF. IV SITE INTACT.
--- NOTE | 2020-03-27 09:30 | NUR ---
PT TRANSPORTED TO [facility] ROOM 282 VIA WHEELCAHAIR ON 4L OF OXYGEN IN STABLE CONDITION. UPDATED BEDSIDE REPORT GIVEN TO RITU GERONIMO.
--- NOTE | 2020-03-27 11:23 | NUR ---
PT IS SITTING IN THE CHAIR AT THIS TIME/.
--- NOTE | 2020-03-27 12:00 | NUR ---
PT IS RELAXING IN THE CHAIR, NO DISTRESS NOTED. IV SITE IS FREE FROM REDNESS OR EDEMA. CONTINUE TO OSBERVE AND MONITOR.
--- NOTE | 2020-03-27 15:00 | NUR ---
PT IV SITE FLUSHED AFTER THE REMDESIVIR. LOOKED A LITTLE PUFFY INQUIRED WITH PT, STATED:" IT DOES THAT ALL THE TIME AND THEN GOES BACK DOWN". WILL RECHECK PRIOR TO GIVING NEXT ABT.
--- NOTE | 2020-03-27 16:00 | NUR ---
PT IS RELAXING IN BED WITH NO DISTRESS NOTED. IV SITE IS FREE FROM REDNES OR EDEMA. AT THIS TIME.
--- NOTE | 2020-03-27 18:08 | NUR ---
IV SITE CHANGED TO LAC DUE TO PUFFINESS ON RW. PT TOLERATED WELL
--- NOTE | 2020-03-27 19:21 | NUR ---
REPORT FROM JUANPABLO CHANEY. ASSUMED PT CARE.
--- NOTE | 2020-03-27 21:15 | NUR ---
PT NOTED RESTING IN BED WITH EYES CLOSED. WAKES EASILY. ALERT AND ORIENTED. PT MEDICATED ORDERED. NO APPARENT DISTRESS NOTED. O2 @ 4L/M VIA NC. RESPIRATIONS EVEN AND UNLABORED. WOOD SETTER PLACE ON PT PER TRANSFER ORDER. PT DENIES ANY PAIN OR SOB AT THIS TIME. DISCUSSED POC AND SAFETY PRECAUTIONS. PT VERBALIZED UNDERSTANDING. DIABETIC SNACK AND FRESH ICE WATER PROVIDED AT THIS TIME. CALL LIGHT WITHIN REACH. WILL CONTINUE TO MONITOR.
[2020-03-28] VITALS (7 sets, daily range): BP systolic 19–139; BP diastolic 57–63
--- NOTE | 2020-03-28 00:23 | NUR ---
PT RESTING IN BED WITH EYES CLOSED. NO APPARENT DISTRESS NOTED. RESPIRATIONS EVEN AND UNLABORED. 02 @ 4L/M VIA NC. MACHINE MILKER IN PLACE. IV SITE APPEARS HEALTHY. CALL LIGHT WITHIN REACH. WILL CONTINUE TO MONITOR.
--- NOTE | 2020-03-28 04:44 | NUR ---
PT RESTING IN BED WITH EYES CLOSED. NO APPARENT DISTRESS NOTED. RESPIRATIONS EVEN AND UNLABORED. 02 @ 4L/M VIA NC. FREIGHT CONDUCTOR IN PLACE. IV SITE APPEARS HEALTHY. CALL LIGHT WITHIN REACH. WILL CONTINUE TO MONITOR.
[2020-03-28 05:34] LABS: HEMATOCRIT 36.9 % (39.0-50.0); HEMOGLOBIN 12.6 g/dl (14.0-18.0); MEAN CELL VOLUME 88.3 fL CALC (80.0-100.0); MEAN CORPUSCULAR HGB 30.1 pG CALC (26.0-32.0); MEAN CORPUSCULAR HGB CONC 34.1 g/dL CAL (32.0-36.0); NEUT# 7.5 thou/uL (1.82-7.42); RED BLOOD COUNT 4.18 mill/uL (4.70-6.10); RED CELL DISTRI WIDTH 14.7 % (11.5-15.5)
[2020-03-28 05:41] LABS: ALBUMIN 3.4 g/dL (3.2-5.0); ALKALINE PHOSPHATASE 45 u/l (38-126); ANION GAP 10 (6-22 (CALC)); BILIRUBIN, TOTAL 0.7 mg/dL (0.0-1.4); BUN 25 mg/dL (8-23); BUN/CREATININE RATIO 29 (12-20 (CALC)); CARBON DIOXIDE 31 mmol/l (22-30); CHLORIDE 98 mmol/l (95-108); CREATININE 0.9 mg/dL (0.7-1.3); GFR > 60 ML/MIN (>=60 (CALC)); GFR FOR AFR.AMER. > 60 ML/MIN (>=60 (CALC)); SGOT/AST 27 u/l (19-48); SODIUM 135 mmol/l (137-146); TOTAL PROTEIN 6.4 g/dL (6.3-8.2)
--- NOTE | 2020-03-28 08:00 | NUR ---
ASSESSMENT IS COMPLETED:IV SITE IS FREE FROM REDNESS OR EDEMA. HR IS REG,PULSES ARE STRONG X4, ABD IS SOFT WITH ACTIV EBS. BREATH SOUNDS ARE DIMINISHED AND CLEAR. O2 @ 4LITERS HIGH FLOW. TELE MONITOR IN PLACE. CONTINUE TO OSBERVE AND MONITOR.
--- NOTE | 2020-03-28 12:15 | NUR ---
PT IS RELAXING IN BED WILL GET IN THE CHAIR AFTER A SHOWER.,
--- NOTE | 2020-03-28 14:20 | NUR ---
PT HAD A SHOWER AND IS SITTING IN THE CHAIR. NO DISTRESS NOTED.
--- NOTE | 2020-03-28 15:45 | NUR ---
WANTED TO GO BACK TO BED. AFTER ABT INFUSED.
--- NOTE | 2020-03-28 16:11 | NUR ---
PT note Patient reviewed and performed the COVID treatment plan of DBE and breath holds as well as standing. He did not preform proning as his obesity prevents this from being effective. Am Pac is 14 indicating he is impriving and would do well in a rehab setting to promote independence, endurance and decrease his fall risk. He is able to march in place with o2 and vitals stable for 1 min x 2
--- NOTE | 2020-03-28 16:45 | NUR ---
PT IS RELAXING IN BED WITH MO DISTRESS NOTED. IV SITE IS FEE FROMREDNESS OR EDEMA.
--- NOTE | 2020-03-28 19:24 | NUR ---
REPORT FROM JUANPABLO CHANEY. ASSUMED PT CARE.
--- NOTE | 2020-03-28 21:08 | NUR ---
STAT GLUCOSE FOR ACCRoller 439.
--- NOTE | 2020-03-28 21:44 | NUR ---
STAT GLUCOSE 383 INSULIN ADMINISTERED PER SLIDING SCALE. DIABETIC SNACK PROVIDED. NO OTHER CURRENT WANTS OR NEEDS. CALL LIGHT WITHIN REACH. WILL CONTINUE TO MONITOR.
--- NOTE | 2020-03-28 21:44 | NUR ---
STAT GLUCOSE 383 INSULIN ADMINISTERED PER SLIDING SCALE.
--- NOTE | 2020-03-29 01:23 | NUR ---
PT RESTING IN BED WITH EYES CLOSED. NO APPARENT DISTRESS NOTED. RESPIRATIONS EVEN AND UNLABORED. 02 @ 4L/M VIA NC. CAR WASH ATTENDANT AUTOMATIC IN PLACE. IV SITE APPEARS HEALTHY. CALL LIGHT WITHIN REACH. WILL CONTINUE TO MONITOR.
[2020-03-29 04:05] VITALS: BP 142/67
--- NOTE | 2020-03-29 04:48 | NUR ---
PT RESTING IN BED WITH EYES CLOSED. NO APPARENT DISTRESS NOTED. RESPIRATIONS EVEN AND UNLABORED. 02 @ 4L/M VIA NC. COIL SHAPER IN PLACE. IV SITE APPEARS HEALTHY. CALL LIGHT WITHIN REACH. WILL CONTINUE TO MONITOR.
[2020-03-29 05:36] LABS: HEMATOCRIT 36.4 % (39.0-50.0); HEMOGLOBIN 12.3 g/dl (14.0-18.0); IMMATURE GRANULOCYTES 0.5 % (0.0-5.0); MEAN CORPUSCULAR HGB 30.1 pG CALC (26.0-32.0); MEAN CORPUSCULAR HGB CONC 33.8 g/dL CAL (32.0-36.0); NEUT# 9.04 thou/uL (1.82-7.42); RED BLOOD COUNT 4.09 mill/uL (4.70-6.10); RED CELL DISTRI WIDTH 14.9 % (11.5-15.5)
[2020-03-29 05:42] LABS: ALBUMIN 3.4 g/dL (3.2-5.0); ALKALINE PHOSPHATASE 48 u/l (38-126); ANION GAP 11 (6-22 (CALC)); BILIRUBIN, TOTAL 0.7 mg/dL (0.0-1.4); BUN 22 mg/dL (8-23); BUN/CREATININE RATIO 29 (12-20 (CALC)); C-REACTIVE PROTEIN < 0.5 mg/dL (0-0.9); CARBON DIOXIDE 32 mmol/l (22-30); CHLORIDE 97 mmol/l (95-108); CREATININE 0.8 mg/dL (0.7-1.3); GFR > 60 ML/MIN (>=60 (CALC)); GFR FOR AFR.AMER. > 60 ML/MIN (>=60 (CALC)); POTASSIUM 3.9 mmol/l (3.5-5.1); SGOT/AST 28 u/l (19-48); SODIUM 135 mmol/l (137-146); TOTAL PROTEIN 6.4 g/dL (6.3-8.2)
--- NOTE | 2020-03-29 07:00 | NUR ---
SHIFT CHANGE REPORT, PT ALERT AND ORIENTED SITTING UP IN CHAIR, C/O NECK PAIN, TELE MONITOR IN PLACE, NEEDS ADDRESSED, CALL CLIFTON IN REACH.
[2020-03-29 10:26] VITALS: BP 108/66
--- NOTE | 2020-03-29 12:00 | NUR ---
PT SITTING IN CHAIR AND REQUEST TO GET BACK TO BED STATING HIS BUTT HURTS, ASSISTED WITH REQUEST AND STATED HE FEELS MUCH BETTER, WILL CONTINUE TO MONITOR.
--- NOTE | 2020-03-29 16:00 | NUR ---
SLEEPING AT THIS TIME, NO SIGN DISCOMFORT.
[2020-03-29 16:11] VITALS: BP 103/67
--- NOTE | 2020-03-29 19:05 | NUR ---
REPORT FROM BHUPINDER MCNAMARA. ASSUMED PT CARE.
[2020-03-29 20:10] VITALS: BP 108/61
--- NOTE | 2020-03-29 20:20 | NUR ---
PT NOTED RESTING IN BED WITH EYES CLOSED. WAKES EASILY. ALERT AND ORIENTED. PT MEDICATED ORDERED. NO APPARENT DISTRESS NOTED. O2 @ 4L/M VIA NC. RESPIRATIONS EVEN AND UNLABORED. ETL ANALYST PLACE. PT DENIES ANY PAIN OR SOB AT THIS TIME. DISCUSSED POC AND SAFETY PRECAUTIONS. PT VERBALIZED UNDERSTANDING. DIABETIC SNACK AND FRESH ICE WATER PROVIDED AT THIS TIME. CALL LIGHT WITHIN REACH. WILL CONTINUE TO MONITOR.
[2020-03-29 23:55] VITALS: BP 124/55
--- NOTE | 2020-03-29 23:59 | NUR ---
PT RESTING IN BED WITH EYES CLOSED. NO APPARENT DISTRESS NOTED. RESPIRATIONS EVEN AND UNLABORED. 02 @ 4L/M VIA NC. NATIONAL ACCOUNTS SALES IN PLACE. VSS. IV SITE APPEARS HEALTHY. CALL LIGHT WITHIN REACH. WILL CONTINUE TO MONITOR.
[2020-03-30 04:28] VITALS: BP 111/62
--- NOTE | 2020-03-30 04:32 | NUR ---
PT RESTING IN BED WITH EYES CLOSED. NO APPARENT DISTRESS NOTED. RESPIRATIONS EVEN AND UNLABORED. 02 @ 4L/M VIA NC. RADIO MECHANIC IN PLACE. VSS. IV SITE APPEARS HEALTHY. CALL LIGHT WITHIN REACH. WILL CONTINUE TO MONITOR.
[2020-03-30 06:02] LABS: HEMATOCRIT 38.1 % (39.0-50.0); HEMOGLOBIN 12.8 g/dl (14.0-18.0); MEAN CORPUSCULAR HGB 29.6 pG CALC (26.0-32.0); MEAN CORPUSCULAR HGB CONC 33.6 g/dL CAL (32.0-36.0); RED BLOOD COUNT 4.33 mill/uL (4.70-6.10); RED CELL DISTRI WIDTH 15.1 % (11.5-15.5)
[2020-03-30 06:25] LABS: ALBUMIN 3.2 g/dL (3.2-5.0); ALKALINE PHOSPHATASE 46 u/l (38-126); ANION GAP 9 (6-22 (CALC)); BILIRUBIN, TOTAL 0.8 mg/dL (0.0-1.4); BUN 26 mg/dL (8-23); BUN/CREATININE RATIO 30 (12-20 (CALC)); CARBON DIOXIDE 31 mmol/l (22-30); CHLORIDE 99 mmol/l (95-108); CREATININE 0.9 mg/dL (0.7-1.3); GFR > 60 ML/MIN (>=60 (CALC)); GFR FOR AFR.AMER. > 60 ML/MIN (>=60 (CALC)); POTASSIUM 3.4 mmol/l (3.5-5.1); SGOT/AST 29 u/l (19-48); SODIUM 135 mmol/l (137-146); TOTAL PROTEIN 6.2 g/dL (6.3-8.2)
[2020-03-30 08:00] VITALS: BP 107/61
--- NOTE | 2020-03-30 09:00 | NUR ---
PT AWAKE, ALERT, ORIENTED X 3. LUNGS CLEAR, 3 LPM. NO COMPLAINTS OF SHORTNESS OF BREATH OR OTHERWISE. NO BM X 2 DAYS, NORMAL FOR HIM.
[2020-03-30 12:00] VITALS: BP 92/60
--- NOTE | 2020-03-30 14:56 | NUR ---
PT PROVIDED EXTENSION TUBING TO ALLOW FURTHER WALKING AROUND ROOM. PT STEADY ON HIS FEET, OOB IN CHAIR FOR MUCH OF THE MORNING.
[2020-03-30 16:03] VITALS: BP 127/66
--- NOTE | 2020-03-30 19:00 | NUR ---
REPORT FROM ANN MCNAMARA. ASSUMED PT CARE.
[2020-03-30 20:09] VITALS: BP 123/58
--- NOTE | 2020-03-30 21:30 | NUR ---
PT NOTED RESTING IN BED WITH EYES CLOSED. WAKES EASILY. ALERT AND ORIENTED. PT MEDICATED ORDERED. NO APPARENT DISTRESS NOTED. O2 @ 3L/M VIA NC. RESPIRATIONS EVEN AND UNLABORED. SEAPORT PLANNING MANAGER PLACE. PT DENIES ANY PAIN OR SOB AT THIS TIME. DISCUSSED POC AND SAFETY PRECAUTIONS. PT VERBALIZED UNDERSTANDING. NO BM NOTED SINCE 03/27/19, ABD DISTENDED SOFT, ACTIVE BOWEL SOUNDS NOTED. PT REFUSED MOM. DIABETIC SNACK, PRUNE JUICE, AND FRESH ICE WATER PROVIDED AT THIS TIME. CALL LIGHT WITHIN REACH. WILL CONTINUE TO MONITOR.
[2020-03-30 23:50] VITALS: BP 109/70
--- NOTE | 2020-03-31 00:34 | NUR ---
PT RESTING IN BED WITH EYES CLOSED. NO APPARENT DISTRESS NOTED. RESPIRATIONS EVEN AND UNLABORED. 02 @ 3L/M VIA NC. CUFF TURNER MACHINE OPERATOR IN PLACE. VSS. IV SITE APPEARS HEALTHY. CALL LIGHT WITHIN REACH. WILL CONTINUE TO MONITOR.
[2020-03-31 04:00] VITALS: BP 97/46
--- NOTE | 2020-03-31 04:51 | NUR ---
PT RESTING IN BED WITH EYES CLOSED. NO APPARENT DISTRESS NOTED. RESPIRATIONS EVEN AND UNLABORED. 02 @ 3L/M VIA NC. CROWN IRONER OPERATOR IN PLACE. VSS. IV SITE APPEARS HEALTHY. CALL LIGHT WITHIN REACH. WILL CONTINUE TO MONITOR.
[2020-03-31 07:55] VITALS: BP 138/66
--- NOTE | 2020-03-31 07:55 | NUR ---
ASSESSMENT IS COMPELTED; IV SITE IS FREE FROM REDNESS OR EDEMA. HR IS REG,PULSES ARE STRONG X4, ABD IS SOFT WITH ACTIVE BS. BREATH SOUNDS ARE CLEAR, BILATERALLY. TELE MONITOR IN PLACE.
[2020-03-31 11:00] VITALS: BP 102/70
--- NOTE | 2020-03-31 12:25 | NUR ---
PT IS RELAXING IN BED WITH NO DISTRESS NOTED. IV SITE IS FREE FROM REDNESS OR EDMEA.
--- NOTE | 2020-03-31 13:05 | NUR ---
PT note Patient re- evaluation written for rehab placement purposes. Please refer to eval for these results
[2020-03-31 15:00] VITALS: BP 109/68
--- NOTE | 2020-03-31 16:25 | NUR ---
PT IS SITTING IN THE CHAIR. NO DISTRESS NOTED IV SITE IS FREE FROM RENDESS OR EDMA.
[2020-03-31 18:55] VITALS: BP 116/71
--- NOTE | 2020-03-31 20:00 | NUR ---
PATIENT RESTING IN BED AT THIS TIME-AWAKE ALERT AND ORIENTEDX3. PATIENT WITH O2 VIA NASAL CANNULA IN PLACE AT 3LPM. O2 SATS 94%. TELE MONITOR IN PLACE. IV SITE TO LAC INTACT AND APPEARS HEALTHY AT THIS TIME. CALL LIGHT IN REACH. WILL CONT TO MONITOR.
--- NOTE | 2020-03-31 21:00 | NUR ---
ACCU-CHECK 195-PATIENT COVERED WITH 2UNITS OF HUMALOG. LEVEMIR 75UNITS SQ GIVEN SCHEDULED. HS SNACK PROVIDED. CALL LIGHT IN REACH. WILL CONT TO MONITOR.
[2020-03-31 23:43] VITALS: BP 110/67
--- NOTE | 2020-04-01 00:22 | NUR ---
PATIENT RESTING IN BED AT THIS TIME WITH O2 VIA NASAL CANNULA IN PLACE. O2 SAT IS 96% AT THIS TIME. RESP ARE EVEN AND UNLABORED. EYES ARE CLOSED AND APPEARS SLEEPING. TELE MONITOR IN PLACE. CALL LIGHT IN REACH. WILL CONT TO MONITOR.
[2020-04-01 04:00] VITALS: BP 136/71
--- NOTE | 2020-04-01 04:30 | NUR ---
PATIENT RESTING IN BED WITH O2 VIA NASAL CANNULA IN PLACE. O2 SAT 95% 0N 3LPM. RESPS ARE EVEN AND UNLABORED. TELE MONITOR IN PLACE. CALL LIGHT IN REACH. WILL CONT TO MONITOR.
[2020-04-01 08:00] VITALS: BP 115/62
--- NOTE | 2020-04-01 08:00 | NUR ---
ASSESSMENT IS COMPLETED: IV SITE IS FREE FROM REDNESS OR EDEMA.HR IS REG,PULSES ARE STRONG X4, ABD IS SOFT WITH ACTIVE BS. BREATH SOUNDS ARE CLEAR AND DIMINISHED. O2 @ 3LITERS WITH NC. TELE MONITOR IN PLACE.
[2020-04-01 10:30] VITALS: BP 112/65
--- NOTE | 2020-04-01 12:40 | NUR ---
PT IS RELAXING IN THE CHAIR. NO DISTRESS NOTED.
--- NOTE | 2020-04-01 13:39 | NUR ---
INFORMED PT'S RE: BEING DISCHARGED TO [facility] TODAY IN BETWEEN 4 AND 4;30.
[2020-04-01 15:00] VITALS: BP 120/72
--- NOTE | 2020-04-01 16:00 | NUR ---
PT IV SITE DISCONTINUED CATHETER INTACT. NO REDNESS OR EDEMA. TELE MONITOR. TAKEN OFF.
--- NOTE | 2020-04-01 17:55 | NUR ---
spoke with shyla at [facility]. transport is here to [place] [facility] pt. all belongings are with pt. continu eto observe and monitor
--- NOTE | 2020-04-01 17:58 | NUR ---
Discharge instructions given. Patient verbalizes understanding of same. Discharged in stable condition via Medical Transport to *Other with *Other. All belongings sent with pt.
== END 2020-04-01 18:21 | DRG 177 ==
LOC: ED 12:14 → ED-I 12:35 → ED 12:35 → ED-I 14:20 → ED 14:35 → MS2 14:36 → ICU 03-21 09:35 → MS2 03-27 09:19
PROVIDERS: Family Medicine; Nurse Practitioner; Nurse Practitioner Family; ADMIT Internal Medicine; ATTEND Internal Medicine
PROC: XW033E5 Introduction of Remdesivir Anti-infective into Peripheral Vein, Percutaneous Approach, New Technology Group 5 (ICD-10-PCS; principal; 2020-03-20)
DX: U07.1 COVID-19 (principal); J12.82 Pneumonia due to coronavirus disease 2019; J96.01 Acute respiratory failure with hypoxia; J44.0 Chronic obstructive pulmonary disease with (acute) lower respiratory infection; G93.0 Cerebral cysts; E11.65 Type 2 diabetes mellitus with hyperglycemia; T38.0X5A Adverse effect of glucocorticoids and synthetic analogues, initial encounter; I10 Essential (primary) hypertension; E78.5 Hyperlipidemia, unspecified; E11.40 Type 2 diabetes mellitus with diabetic neuropathy, unspecified; G47.30 Sleep apnea, unspecified; I25.10 Atherosclerotic heart disease of native coronary artery without angina pectoris; I71.4 Abdominal aortic aneurysm, without rupture; I25.2 Old myocardial infarction; Z79.4 Long term (current) use of insulin; Z95.5 Presence of coronary angioplasty implant and graft; Z91.81 History of falling; Z79.02 Long term (current) use of antithrombotics/antiplatelets; Z79.82 Long term (current) use of aspirin
CPT/HCPCS: J1650

== ENCOUNTER 2020-08-08 14:54 | Emergency (ER) | payer OTHER, MEDICARE ==
[~2020-08-08] VITALS: Ht 180.3 cm; Wt 128.0 kg
[~2020-08-08 14:54] MED LIST changes: +ALL DAY ALLG10 MG PO; +ASPIRIN ADULT L81 M2; +CELEXA40 M1 PO; +CLOPIDOGREL75 MG PO; +FERROUS SULF325 M2 PO; +GLIPIZIDE5 M2 PO; +LANTUS100 UNIT/M SC; +METOPROL TAR25 M1 PO; +MONTELUKAST SOD10 MG PO; +NOVOLOG100 UNIT/M SC; +PANTOPRAZOLE SO40 M1 PO; +PROAIR HFA IN; +ROSUVASTATIN CA40 MG; +[UNRECOGNIZED DRUG - CODE]
[2020-08-08 15:42] LABS: URINE BILIRUBIN - DIPSTICK NEGATIVE (NEGATIVE); URINE BLOOD DIPSTICK NEGATIVE (NEGATIVE); URINE COLOR YELLOW; URINE GLUCOSE - DIPSTICK >=1000 mg/dL (NEGATIVE); URINE KETONE NEGATIVE (NEGATIVE); URINE LEUK ESTERASE NEGATIVE (NEGATIVE); URINE NITRITE - DIPSTICK NEGATIVE (Negative); URINE PROTEIN - DIPSTICK NEGATIVE (NEG-TRACE); URINE UROBILINOGEN - DIPSTICK 0.2 E.U./dL (0.2)
[2020-08-08 15:48] LABS: HEMATOCRIT 38.4 % (39.0-50.0); HEMOGLOBIN 13.1 g/dl (14.0-18.0); IMMATURE GRANULOCYTES 0.3 % (0.0-5.0); MEAN CELL VOLUME 90.6 fL CALC (80.0-100.0); MEAN CORPUSCULAR HGB 30.9 pG CALC (26.0-32.0); MEAN CORPUSCULAR HGB CONC 34.1 g/dL CAL (32.0-36.0); NEUT# 4.8 thou/uL (1.82-7.42); RED BLOOD COUNT 4.24 mill/uL (4.70-6.10); RED CELL DISTRI WIDTH 14.7 % (11.5-15.5)
[2020-08-08 16:07] LABS: ALKALINE PHOSPHATASE 49 u/l (38-126); ANION GAP 12 (6-22 (CALC)); BILIRUBIN, TOTAL 0.6 mg/dL (0.0-1.4); BUN 17 mg/dL (8-23); BUN/CREATININE RATIO 23 (12-20 (CALC)); CARBON DIOXIDE 29 mmol/l (22-30); CHLORIDE 98 mmol/l (95-108); CREATININE 0.8 mg/dL (0.7-1.3); GFR > 60 ML/MIN (>=60 (CALC)); GFR FOR AFR.AMER. > 60 ML/MIN (>=60 (CALC)); POTASSIUM 3.9 mmol/l (3.5-5.1); SGOT/AST 46 u/l (19-48); SODIUM 135 mmol/l (137-146)
[2020-08-08 16:13] LABS: ALBUMIN 4.3 g/dL (3.2-5.0); TOTAL PROTEIN 7.6 g/dL (6.3-8.2)
[2020-08-08 16:18] LABS: MYOGLOBIN 43 ng/mL (0 - 121)
[2020-08-08] MEDS ORDERED: ONDANSETRON4 MG PO (17:16)
[2020-08-08] MEDS ORDERED: MECLIZINE25 MG PO (17:16)
[2020-08-08 17:26] VITALS: BP 159/75
== END 2020-08-08 17:28 | disposition home or self-care (01) | DRG 149 ==
LOC: ED 14:54
PROVIDERS: Emergency Medicine
DX: R42 Dizziness and giddiness (principal); I10 Essential (primary) hypertension; I25.10 Atherosclerotic heart disease of native coronary artery without angina pectoris; E11.9 Type 2 diabetes mellitus without complications; Z86.16 Personal history of COVID-19; Z79.02 Long term (current) use of antithrombotics/antiplatelets; Z79.82 Long term (current) use of aspirin; Z95.5 Presence of coronary angioplasty implant and graft; Z79.4 Long term (current) use of insulin

== ENCOUNTER 2020-12-25 18:41 | Emergency (ER) | payer OTHER, MEDICARE ==
[~2020-12-25] VITALS: Ht 180.3 cm; Wt 122.0 kg
[~2020-12-25 18:41] MED LIST changes: +MECLIZINE25 MG PO; +ONDANSETRON4 MG PO
[2020-12-25 20:49] VITALS: BP 123/79
== END 2020-12-25 21:04 | disposition home or self-care (01) | DRG 605 ==
LOC: ED 18:41
DX: S00.81XA Abrasion of other part of head, initial encounter (principal); S80.212A Abrasion, left knee, initial encounter; S80.211A Abrasion, right knee, initial encounter; I10 Essential (primary) hypertension; I25.10 Atherosclerotic heart disease of native coronary artery without angina pectoris; E11.9 Type 2 diabetes mellitus without complications; W01.0XXA Fall on same level from slipping, tripping and stumbling without subsequent striking against object, initial encounter; Y92.009 Unspecified place in unspecified non-institutional (private) residence as the place of occurrence of the external cause; Z95.5 Presence of coronary angioplasty implant and graft; Z79.84 Long term (current) use of oral hypoglycemic drugs; Z79.4 Long term (current) use of insulin

== ENCOUNTER 2021-06-27 02:07 | Emergency (ER) | payer OTHER, MEDICARE ==
[~2021-06-27] VITALS: Ht 180.3 cm; Wt 111.0 kg
[2021-06-27 02:20] VITALS: BP 145/50
[2021-06-27 02:31] VITALS: BP 133/104
[2021-06-27 02:58] VITALS: BP 113/49
== END 2021-06-27 03:06 | disposition home or self-care (01) | DRG 607 ==
LOC: ED 02:07
DX: L29.9 Pruritus, unspecified (principal); I10 Essential (primary) hypertension; E11.9 Type 2 diabetes mellitus without complications; I25.10 Atherosclerotic heart disease of native coronary artery without angina pectoris; Z95.5 Presence of coronary angioplasty implant and graft; Z79.4 Long term (current) use of insulin

== ENCOUNTER 2021-07-05 16:06 | Emergency (ER) | payer OTHER ==
[~2021-07-05] VITALS: Ht 180.3 cm; Wt 125.0 kg
[2021-07-05 16:16] VITALS: BP 120/62
[2021-07-05 16:31] VITALS: BP 131/71
[2021-07-05 17:01] VITALS: BP 120/92
[2021-07-05] MEDS ORDERED: PERMETHRIN5 % EX (17:17)
[2021-07-05] MEDS ORDERED: ALL DAY10 MG PO (17:17)
[2021-07-05] MEDS ORDERED: PREDNISONE50 MG PO (17:17)
[2021-07-05 17:57] VITALS: BP 120/92
== END 2021-07-05 18:15 | disposition home or self-care (01) | DRG 916 ==
LOC: ED 16:06
DX: T78.40XA Allergy, unspecified, initial encounter (principal); I10 Essential (primary) hypertension; E11.9 Type 2 diabetes mellitus without complications; I25.10 Atherosclerotic heart disease of native coronary artery without angina pectoris; X58.XXXA Exposure to other specified factors, initial encounter; Z95.5 Presence of coronary angioplasty implant and graft; Z79.84 Long term (current) use of oral hypoglycemic drugs; Z79.4 Long term (current) use of insulin

== ENCOUNTER 2021-08-21 12:19 | Emergency (ER) | payer OTHER, MEDICARE ==
[~2021-08-21] VITALS: Ht 180.3 cm; Wt 117.9 kg
[~2021-08-21 12:19] MED LIST changes: +ALL DAY10 MG PO; +PERMETHRIN5 % EX; +PREDNISONE50 MG PO
[2021-08-21 13:49] LABS: HEMATOCRIT 36.6 % (39.0-50.0); HEMOGLOBIN 12.3 g/dl (14.0-18.0); IMMATURE GRANULOCYTES 0.6 % (0.0-5.0); MEAN CELL VOLUME 88.6 fL CALC (80.0-100.0); MEAN CORPUSCULAR HGB 29.8 pG CALC (26.0-32.0); MEAN CORPUSCULAR HGB CONC 33.6 g/dL CAL (32.0-36.0); NEUT# 5.47 thou/uL (1.82-7.42); RED BLOOD COUNT 4.13 mill/uL (4.70-6.10); RED CELL DISTRI WIDTH 15.6 % (11.5-15.5)
[2021-08-21 14:12] LABS: ALBUMIN 4.1 g/dL (3.2-5.0); ALKALINE PHOSPHATASE 62 u/l (38-126); ANION GAP 14 (6-22 (CALC)); BILIRUBIN, TOTAL 0.6 mg/dL (0.0-1.4); BUN 18 mg/dL (8-23); BUN/CREATININE RATIO 17 (12-20 (CALC)); CARBON DIOXIDE 26 mmol/l (22-30); CHLORIDE 101 mmol/l (95-108); CPK 63 u/l (52-200); CREATININE 1.1 mg/dL (0.7-1.3); GFR FOR AFR.AMER. > 60 ML/MIN (>=60 (CALC)); GFR OTHER RACES > 60 ML/MIN (>=60 (CALC)); POTASSIUM 3.7 mmol/l (3.5-5.1); SGOT/AST 33 u/l (19-48); SODIUM 137 mmol/l (137-146); TOTAL PROTEIN 7.4 g/dL (6.3-8.2)
[2021-08-21 16:07] VITALS: BP 121/79
== END 2021-08-21 16:11 | disposition home or self-care (01) | DRG 392 ==
LOC: ED 12:19
PROVIDERS: Internal Medicine
DX: R10.11 Right upper quadrant pain (principal); R10.31 Right lower quadrant pain; M54.50 Low back pain, unspecified; K80.20 Calculus of gallbladder without cholecystitis without obstruction; I71.4 Abdominal aortic aneurysm, without rupture; N28.1 Cyst of kidney, acquired; Z79.4 Long term (current) use of insulin; I10 Essential (primary) hypertension; E11.9 Type 2 diabetes mellitus without complications; I25.10 Atherosclerotic heart disease of native coronary artery without angina pectoris; E78.5 Hyperlipidemia, unspecified; M47.816 Spondylosis without myelopathy or radiculopathy, lumbar region; Z79.01 Long term (current) use of anticoagulants; Z95.5 Presence of coronary angioplasty implant and graft; Z79.84 Long term (current) use of oral hypoglycemic drugs

== ENCOUNTER 2022-03-02 16:00 | Emergency (ER) | payer OTHER ==
[~2022-03-02] VITALS: Ht 180.3 cm; Wt 113.7 kg
[2022-03-02 16:29] VITALS: BP 136/54
[2022-03-02 16:31] LABS: BASO% 0.4 % (0-3); EOS% 3.3 % (0-8); HEMATOCRIT 38.6 % (39.0-50.0); HEMOGLOBIN 13.5 g/dl (14.0-18.0); IMMATURE GRANULOCYTES 0.1 % (0.0-5.0); LYMPH% 24.7 % (15-41); MEAN CELL VOLUME 89.4 fL CALC (80.0-100.0); MEAN CORPUSCULAR HGB 31.3 pG CALC (26.0-32.0); MONO% 7.7 % (2-13); NEUT# 4.29 thou/uL (1.82-7.42); NEUT% 63.8 % (42-76); RED BLOOD COUNT 4.32 mill/uL (4.70-6.10); RED CELL DISTRI WIDTH 14.5 % (11.5-15.5)
[2022-03-02 16:46] VITALS: BP 122/61
[2022-03-02 17:01] VITALS: BP 134/66
[2022-03-02 17:13] LABS: ALBUMIN 4.7 g/dL (3.2-5.0); ALKALINE PHOSPHATASE 76 u/l (38-126); ANION GAP 17 (6-22 (CALC)); BILIRUBIN, TOTAL 0.5 mg/dL (0.0-1.4); BUN 18 mg/dL (8-23); BUN/CREATININE RATIO 19 (12-20 (CALC)); CARBON DIOXIDE 29 mmol/l (22-30); CHLORIDE 101 mmol/l (95-108); CREATININE 0.9 mg/dL (0.7-1.3); GFR FOR AFR.AMER. > 60 ML/MIN (>=60 (CALC)); GFR OTHER RACES > 60 ML/MIN (>=60 (CALC)); SGOT/AST 50 u/l (19-48); SODIUM 143 mmol/l (137-146); TOTAL PROTEIN 8.1 g/dL (6.3-8.2)
[2022-03-02 18:01] VITALS: BP 127/98
[2022-03-02 18:42] VITALS: BP 127/98
== END 2022-03-02 18:50 | disposition home or self-care (01) | DRG 601 ==
LOC: ED 16:00
PROVIDERS: Family Medicine
DX: N64.4 Mastodynia (principal); M25.521 Pain in right elbow; M25.531 Pain in right wrist; W19.XXXA Unspecified fall, initial encounter

== ENCOUNTER 2022-06-04 09:07 | Observation (INO) | payer OTHER, MEDICARE ==
[2022-06-04] VITALS (17 sets, daily range): BP systolic 111–147; BP diastolic 54–74
[~2022-06-04] VITALS: Ht 180.3 cm; Wt 114.2 kg
--- NOTE | 2022-06-04 09:08 | NUR ---
PT TO ROOM VIA EMS.
[2022-06-04 09:35] LABS: BASO% 0.8 % (0-3); HEMATOCRIT 38.9 % (39.0-50.0); HEMOGLOBIN 13.3 g/dl (14.0-18.0); IMMATURE GRANULOCYTES 0.2 % (0.0-5.0); LYMPH% 28.6 % (15-41); MEAN CELL VOLUME 88.8 fL CALC (80.0-100.0); MEAN CORPUSCULAR HGB 30.4 pG CALC (26.0-32.0); MEAN CORPUSCULAR HGB CONC 34.2 g/dL CAL (32.0-36.0); MONO% 9.7 % (2-13); NEUT# 3.59 thou/uL (1.82-7.42); NEUT% 56.7 % (42-76); RED BLOOD COUNT 4.38 mill/uL (4.70-6.10); RED CELL DISTRI WIDTH 14.5 % (11.5-15.5)
[2022-06-04 09:59] LABS: ALBUMIN 4.5 g/dL (3.2-5.0); ALKALINE PHOSPHATASE 55 u/l (38-126); ANION GAP 15 (6-22 (CALC)); BILIRUBIN, TOTAL 0.5 mg/dL (0.2-1.3); BUN 18 mg/dL (8-23); BUN/CREATININE RATIO 19 (12-20 (CALC)); CARBON DIOXIDE 29 mmol/l (22-30); CHLORIDE 100 mmol/l (95-108); GFR FOR AFR.AMER. > 60 ML/MIN (>=60 (CALC)); GFR OTHER RACES > 60 ML/MIN (>=60 (CALC)); POTASSIUM 3.5 mmol/l (3.5-5.1); SGOT/AST 43 u/l (19-48); SODIUM 140 mmol/l (137-146); TOTAL PROTEIN 7.7 g/dL (6.3-8.2)
--- NOTE | 2022-06-04 10:30 | NUR ---
Reassessment of patient completed. No distress noted.
--- NOTE | 2022-06-04 11:19 | NUR ---
REVIEWED PATIENTS MEDICATIONS ON FILE. MED RECONCILIATION COMPLETED. MED SURG NOTIFIED
--- NOTE | 2022-06-04 20:22 | NUR ---
Received bedside report from off going nurse. Head to toe assessment cmpleted. Denies pain at this time. Safety measures in place. Call light within reach.
--- NOTE | 2022-06-04 23:54 | NUR ---
Patient resting quietly in bed with call light in reach. In no apparent distress.
[2022-06-05 00:25] VITALS: BP 136/64
--- NOTE | 2022-06-05 03:31 | NUR ---
Patient asleep. In no apparent distress. Call ligth within reach.
[2022-06-05 04:00] VITALS: BP 118/38
[2022-06-05 04:27] VITALS: BP 118/38
[2022-06-05 05:50] LABS: CHOLESTEROL HDL RATIO 6.1 (<4.4 (CALC)); HDL CHOLESTEROL 27 mg/dL (39.0-59.0); MAGNESIUM 1.7 mg/dL (1.6-2.3); TOTAL CHOLESTEROL 164 mg/dl (0-199)
[2022-06-05 05:57] LABS: VLDL CHOLESTROL 139 mg/dl (0-38 (CALC))
[2022-06-05 06:21] LABS: TOTAL TRIGLYCERIDES 693 mg/dl (0-149)
[2022-06-05 07:36] VITALS: BP 127/63
--- NOTE | 2022-06-05 07:48 | NUR ---
PT RESTING IN SEMI FOWLERS POSITION PT UP AND AMBULATORY TO REST ROOM PT DENIES ADDITIONAL NEEDS AT THE TIME. HEART RHYTHM ON TELE RESPIRATIONS ON ROOM AIR IV SITE NOTED TO LAC S.L. ALL SAFETY PRECAUTIONS IN PLACE.
[2022-06-05 10:56] VITALS: BP 131/62
--- NOTE | 2022-06-05 13:20 | NUR ---
PT TO BE DC
--- NOTE | 2022-06-05 13:55 | NUR ---
Discharge instructions given. Patient verbalizes understanding of same. Discharged in stable condition via Wheelchair to Home with family. All belongings sent with pt. iv removed tele removed
== END 2022-06-05 13:55 | disposition home or self-care (01) | DRG 303 ==
LOC: ED 09:07 → ED-I 10:30 → ED 11:13 → MS2 11:14
PROVIDERS: Family Medicine; ADMIT Internal Medicine; ATTEND Internal Medicine
DX: I25.119 Atherosclerotic heart disease of native coronary artery with unspecified angina pectoris (principal); I10 Essential (primary) hypertension; E11.40 Type 2 diabetes mellitus with diabetic neuropathy, unspecified; I48.91 Unspecified atrial fibrillation; J44.9 Chronic obstructive pulmonary disease, unspecified; E11.69 Type 2 diabetes mellitus with other specified complication; E78.2 Mixed hyperlipidemia; I25.2 Old myocardial infarction; Z79.4 Long term (current) use of insulin; Z79.84 Long term (current) use of oral hypoglycemic drugs; Z95.5 Presence of coronary angioplasty implant and graft; Z79.82 Long term (current) use of aspirin; Z79.02 Long term (current) use of antithrombotics/antiplatelets; Z87.898 Personal history of other specified conditions
CPT/HCPCS: J1650

== ENCOUNTER 2022-06-10 13:44 | Emergency (ER) | payer OTHER, MEDICARE ==
[~2022-06-10] VITALS: Ht 180.3 cm; Wt 115.0 kg
[2022-06-10 13:54] VITALS: BP 115/65
[2022-06-10 15:45] VITALS: BP 115/65
== END 2022-06-10 16:03 | disposition home or self-care (01) | DRG 313 ==
LOC: ED 13:44
DX: R07.9 Chest pain, unspecified (principal); I25.10 Atherosclerotic heart disease of native coronary artery without angina pectoris; Z95.5 Presence of coronary angioplasty implant and graft; E11.9 Type 2 diabetes mellitus without complications; E78.5 Hyperlipidemia, unspecified; I10 Essential (primary) hypertension; Z94.7 Corneal transplant status; Z79.4 Long term (current) use of insulin

== ENCOUNTER 2024-02-04 18:51 | Emergency (ER) | payer OTHER, MEDICARE ==
[~2024-02-04] VITALS: Ht 180.3 cm; Wt 116.8 kg
[~2024-02-04 18:51] MED LIST changes: +EPIPEN 2-P0.3 MG/0.3 IM; +SB ALLERGY10 MG PO
[2024-02-04 19:22] VITALS: BP 145/79
[2024-02-04] MEDS ORDERED: Diph, Acellular Pertussis, Tet 0.5 ML/VIAL (Tdap) SDV IM ONE (19:25)
[2024-02-04 19:31] VITALS: BP 133/72
[2024-02-04] MEDS ORDERED: HYDROCO/APAP1 TA9 PO (19:49)
[2024-02-04] MEDS ORDERED: HYDROcodone 5 MG/Acetaminophen 325 MG/COMBO PO ONE (19:50)
== END 2024-02-04 20:18 | disposition home or self-care (01) | DRG 563 ==
LOC: ED 18:51
DX: S93.401A Sprain of unspecified ligament of right ankle, initial encounter (principal); I10 Essential (primary) hypertension; E11.9 Type 2 diabetes mellitus without complications; I25.10 Atherosclerotic heart disease of native coronary artery without angina pectoris; Z95.5 Presence of coronary angioplasty implant and graft; E78.5 Hyperlipidemia, unspecified; Z79.4 Long term (current) use of insulin; Z79.84 Long term (current) use of oral hypoglycemic drugs; X50.0XXA Overexertion from strenuous movement or load, initial encounter; Y92.009 Unspecified place in unspecified non-institutional (private) residence as the place of occurrence of the external cause